=== PATIENT | female | born 1925 | race Asian ===

== ENCOUNTER 2016-07-23 11:13 | Inpatient (IN) ==
--- NOTE | 2016-07-23 11:26 | Emergency Department Note ---
Disposition Clinical Impression: Sepsis, Pneumonia, Hyperglycemia, Dementia Disposition: Admitted As Inpatient Referrals: NO,PCP [Non-Partnered Physician] - Forms: ED Satisfaction Letter General Adult HPI - General Chief complaint: ED Weakness Stated complaint: lethargic, general illness Time Seen by Provider: 07/23/16 11:14 - History of Present Illness HPI Narrative: 89-year-old female brought in by her nephew, she is a former [facility], she lives at home. The patient is essentially bedbound and has decreased responsive at baseline. She is usually answers yes or no to questions. Per the patient's nephew, she has had increasing weakness and is not as responsive as usual. There is no history of acute trauma. The patient has not indicated chest pain or shortness of breath. There has been a cough and some coarse breath sounds. She was exposed to someone else with an upper respiratory illness. There is no history of vomiting or diarrhea. No history of abdominal pain. The patient is usually in general flexion contracture position with the arms and legs. The patient has had some sacral decubitus in the past but the F he reports she has been treated by the wound center and Dr. Hamilton and this has resolved. She had a fractured shoulder earlier in the year which was not surgically repaired. The patient is diabetic, he checked her sugar to be 127. - Related Data Home Medications Medication Instructions Recorded Confirmed Aspirin Enteric Coated [Aspirin EC] 81 mg PO DAILY 01/22/16 07/23/16 Levothyroxine [Synthroid] 50 mcg PO QAM 04/13/16 07/23/16 Ipratropium/Albuterol Neb [Duoneb] 3 ml IH Q6HR PRN 04/14/16 07/23/16 Albuterol Sulfate [Albuterol 1 puff IH Q4H PRN 07/23/16 07/23/16 Inhaler] Cephalexin [Cephalexin] 125 mg PO DAILY 07/23/16 07/23/16 Docusate Sodium [Dok] 100 mg PO DAILY PRN 07/23/16 07/23/16 Donepezil [Aricept] 5 mg PO DAILY 07/23/16 07/23/16 Potassium Chloride [Potassium 20 mcg PO DAILY 07/23/16 07/23/16 Chloride] Turmeric Root Extract [Turmeric] 500 mg PO DAILY 07/23/16 07/23/16 Allergies Allergy/AdvReac Type Severity Reaction Status Date / Time No Known Allergies Allergy Verified 04/14/16 10:00 All systems ED: reviewed and negative except as stated. Past Medical History - Past Medical History Medical history: Reports: arthritis, cancer, coronary artery disease, DVT, dementia, diabetes, glaucoma, hypertension, myocardial infarction, osteoporosis , renal disease, thyroid disease, other Surgical history: Reports: cholecystectomy, knee replacement, other Psychiatric history: Reports: no psych history - Social History Smoking Status: Never smoker Smokeless Tobacco Status: No Alcohol use: Reports: none Drug use: Reports: none Physical Exam - General Limitations: altered mental status, age General appearance: alert - Head Head exam: atraumatic, normocephalic, normal inspection - Eye Eye exam: Present: normal appearance, PERRL, EOMI - ENT ENT exam: normal exam, mucous membranes moist, TM's normal bilaterally, normal external ear exam - Neck Neck exam: Present: trachea midline - Chest Chest inspection: Present: symmetric chest wall rise. Absent: tenderness - Respiratory Respiratory exam: Present: prolonged expiratory phase. Absent: respiratory distress - Cardiovascular Cardiovascular exam: Present: regular rate, normal rhythm, normal heart sounds - Abdominal Exam Abdominal exam: Present: soft, Non-Tender. Absent: tenderness, distention, guarding, rebound, rigidity, trauma, pulsatile mass - Extremities Exam Extremities exam: Present: normal capillary refill, other (The patient's upper extremities and lower extremities are warm and perfused without acute trauma. She is emaciated, chronic left shoulder deformity noted, scabbed lesions on the left shoulder and left ankle area. The patient is in flexion contracture which is chronic per the nephew.). Absent: tenderness, pedal edema - Expanded Lower Extremity Exam Neurovascular/Tendon exam: Present: normal capillary refill - Back Exam Back exam: Present: normal inspection, full ROM. Absent: tenderness - Neurological Exam Neurological exam: Present: alert, CN II-XII intact, other (Good tone in all 4 extremities, flexion contracture noted however chronic in nature, no samson cranial nerve defects are appreciated.). Absent: oriented X3 - Psychiatric Psychiatric exam: Present: normal affect, normal mood - Skin Skin exam: Present: warm, dry, intact, normal color. Absent: rash, cyanosis, diaphoresis, erythema, pallor, mottled Course Vital Signs Temperature 102.3 F H 07/23/16 11:16 Pulse Rate 86 07/23/16 11:16 Respiratory Rate 22 07/23/16 11:16 Blood Pressure 109/59 07/23/16 11:16 O2 Sat by Pulse Oximetry 99 07/23/16 11:16 Temperature 102.3 F H 07/23/16 11:16 Pulse Rate 74 07/23/16 13:34 Respiratory Rate 22 07/23/16 13:34 Blood Pressure 98/63 07/23/16 13:34 O2 Sat by Pulse Oximetry 95 07/23/16 13:34 Oxygen Delivery Oxygen Delivery Room Air Medical Decision Making - MDM Narrative Medical decision making narrative: The patient meets SIRS/sepsis criteria. She appears to have a UTI and pneumonia. Levaquin was given. He was somewhat hypotensive, 2 L of IV fluid initiated. Initial lactic acid negative. The patient is currently stable. I have consulted the hospitalist for admission. - Lab Data Lab results reviewed: Yes I reviewed the patient's lab results. Result diagrams: 07/23/16 12:30 07/23/16 12:30 Lab Results 07/23/16 07/23/16 07/23/16 Range/Units 12:28 12:30 12:30 WBC 7.8 (4.3-11.1) K/mcL RBC 3.06 L (3.82-4.97) M/mcL Hgb 8.4 L (11.5-15.4) g/dL Hct 26.8 L (35.3-44.9) % MCV 87.6 (83.0-100.0) fL MCH 27.5 L (28.0-33.3) pg MCHC 31.3 L (31.6-35.5) g/dL RDW 17.0 H (11.5-14.5) % Plt Count 233 (140-400) K/mcL MPV 9.0 L (9.4-12.4) fL Immature Gran % 0.4 (0-4) % Seg Neutrophils % 70.7 % Lymphocytes % 18.5 % Monocytes % 6.3 % Eosinophils % 3.7 % Basophils % 0.4 % Neutrophils # 5.5 (1.6-8.9) K/mcL Lymphocytes # 1.4 (0.6-4.6) K/mcL Monocytes # 0.5 (0.0-1.3) K/mcL Eosinophils # 0.3 (0.0-0.6) K/mcL Basophils # 0.0 (0.0-0.2) K/mcL PT 10.8 (9.4-12.1) Seconds INR 1.0 APTT 30.1 (26.0-36.0) Seconds Sodium (136-145) mEq/L Potassium (3.5-4.5) mEq/L Chloride (98-109) mEq/L Carbon Dioxide (19-29) mEq/L BUN (7-20) mg/dL Creatinine (0.57-1.11) mg/dL Est GFR ( Amer) (> 60) Est GFR (Non-Af Amer) (> 60) BUN/Creatinine Ratio (6-26) Glucose (70-99) mg/dL Calculated Osmolality (280-300) Lactic Acid (0.5-2.2) mmol/L Calcium (8.6-10.8) mg/dL Phosphorus (2.3-4.7) mg/dL Magnesium (1.6-2.6) mg/dL Total Bilirubin (0.2-1.2) mg/dL Direct Bilirubin (0.0-0.5) mg/dL Indirect Bilirubin (0.0-1.2) mg/dL AST (5-34) Units/L ALT (0-55) Units/L Alkaline Phosphatase (38-126) Units/L Troponin I (0-0.03) ng/mL Serum Total Protein (6.0-8.3) g/dL Albumin (3.5-5.0) g/dL Globulin (2.4-3.5) g/dL Albumin/Globulin Ratio (1.1-2.2) Urine Color Yellow (Yellow) Urine Clarity Turbid A (Clear) Urine pH 8.5 H (5.0-8.0) pH Units Ur Specific [place] 1.022 (1.010-1.025) Urine Protein 100 H (Neg-Trace) mg/dL Urine Glucose (UA) Normal (Normal) mg/dL Urine Ketones Negative (Negative) mg/dL Urine Blood Negative (Negative) Urine Nitrite Positive A (Negative) Urine Bilirubin Small H (Negative) Urine Urobilinogen Normal (Normal) mg/dL Ur Leukocyte Esterase Large H (Negative) Urine Microscopic RBC 0-3 (0-3) per hpf Urine Microscopic WBC TNTC H (0-3) per hpf Ur Squamous Epith Cells Many H (None-Few) per lpf Calcium Oxalate Crystal Present Triple Phos Crystals Present Urine Bacteria Many H (None-Few) per hpf Hyaline Casts Test Not Performed Urine Mucus Moderate H (Few) Urine Yeast Test Not Performed Ur Culture Indicated? YES A (NO) 07/23/16 07/23/16 07/23/16 Range/Units 12:30 12:30 12:30 WBC (4.3-11.1) K/mcL RBC (3.82-4.97) M/mcL Hgb (11.5-15.4) g/dL Hct (35.3-44.9) % MCV (83.0-100.0) fL MCH (28.0-33.3) pg MCHC (31.6-35.5) g/dL RDW (11.5-14.5) % Plt Count (140-400) K/mcL MPV (9.4-12.4) fL Immature Gran % (0-4) % Seg Neutrophils % % Lymphocytes % % Monocytes % % Eosinophils % % Basophils % % Neutrophils # (1.6-8.9) K/mcL Lymphocytes # (0.6-4.6) K/mcL Monocytes # (0.0-1.3) K/mcL Eosinophils # (0.0-0.6) K/mcL Basophils # (0.0-0.2) K/mcL PT (9.4-12.1) Seconds INR APTT (26.0-36.0) Seconds Sodium 132 L (136-145) mEq/L Potassium 4.3 (3.5-4.5) mEq/L Chloride 105 (98-109) mEq/L Carbon Dioxide 22 (19-29) mEq/L BUN 24 H (7-20) mg/dL Creatinine 0.57 (0.57-1.11) mg/dL Est GFR ( Amer) > 60 (> 60) Est GFR (Non-Af Amer) > 60 (> 60) BUN/Creatinine Ratio 42 H (6-26) Glucose 129 H (70-99) mg/dL Calculated Osmolality 280 (280-300) Lactic Acid 1.2 (0.5-2.2) mmol/L Calcium 7.9 L (8.6-10.8) mg/dL Phosphorus 1.8 L (2.3-4.7) mg/dL Magnesium 1.8 (1.6-2.6) mg/dL Total Bilirubin 0.3 (0.2-1.2) mg/dL Direct Bilirubin 0.2 (0.0-0.5) mg/dL Indirect Bilirubin 0.1 (0.0-1.2) mg/dL AST 11 (5-34) Units/L ALT 6 (0-55) Units/L Alkaline Phosphatase 69 (38-126) Units/L Troponin I 0.02 (0-0.03) ng/mL Serum Total Protein 5.5 L (6.0-8.3) g/dL Albumin 1.8 L (3.5-5.0) g/dL Globulin 3.7 H (2.4-3.5) g/dL Albumin/Globulin Ratio 0.5 L (1.1-2.2) Urine Color (Yellow) Urine Clarity (Clear) Urine pH (5.0-8.0) pH Units Ur Specific [place] (1.010-1.025) Urine Protein (Neg-Trace) mg/dL Urine Glucose (UA) (Normal) mg/dL Urine Ketones (Negative) mg/dL Urine Blood (Negative) Urine Nitrite (Negative) Urine Bilirubin (Negative) Urine Urobilinogen (Normal) mg/dL Ur Leukocyte Esterase (Negative) Urine Microscopic RBC (0-3) per hpf Urine Microscopic WBC (0-3) per hpf Ur Squamous Epith Cells (None-Few) per lpf Calcium Oxalate Crystal Triple Phos Crystals Urine Bacteria (None-Few) per hpf Hyaline Casts Urine Mucus (Few) Urine Yeast Ur Culture Indicated? (NO) - Radiology Data Radiology results reviewed: Yes I reviewed the patient's radiology results.
[2016-07-23] MEDS: 0.9 % Sodium Chloride 1,000 ML IVC SCH ×3 (11:50→17:19)
[2016-07-23 12:44] LABS: Basophils % 0.4 %; Eosinophils # 0.3 K/mcL (0.0-0.6); Eosinophils % 3.7 %; Hematocrit 26.8 % (35.3-44.9); Hemoglobin 8.4 g/dL (11.5-15.4); Immature Granulocytes % 0.4 % (0-4); Lymphocytes # 1.4 K/mcL (0.6-4.6); Lymphocytes % 18.5 %; Mean Corpuscular HGB Conc 31.3 g/dL (31.6-35.5); Mean Corpuscular Hemoglobin 27.5 pg (28.0-33.3); Mean Corpuscular Volume 87.6 fL (83.0-100.0); Monocytes # 0.5 K/mcL (0.0-1.3); Monocytes % 6.3 %; Neutrophils # 5.5 K/mcL (1.6-8.9); Platelet Count 233 K/mcL (140-400); Red Blood Count 3.06 M/mcL (3.82-4.97); Segmented Neutrophils % 70.7 %
[2016-07-23 12:49] LABS: Bilirubin,Urine Small (Negative); Blood,Urine Negative (Negative); Clarity,Urine Turbid (Clear); Color,Urine Yellow (Yellow); Glucose,Urine (UA) Normal (Normal); Ketones,Urine Negative (Negative); Leukocyte Esterase,Urine Large (Negative); Nitrite,Urine Positive (Negative); PH,Urine 8.5 pH Units (5.0-8.0); Protein,Urine 100 mg/dL (Neg-Trace); Specific Gravity,Urine 1.022 (1.010-1.025); Urobilinogen,Urine Normal (Normal)
[2016-07-23 12:52] LABS: Bacteria,Urine Many per hpf (None-Few); Squamous Epithelial Cell,Urine Many per lpf (None-Few); WBC,Urine TNTC per hpf (0-3)
[2016-07-23 12:57] LABS: Alanine Aminotransferase 6 Units/L (0-55); Albumin/Globulin Ratio 0.5 (1.1-2.2); Alkaline Phosphatase 69 Units/L (38-126); Aspartate Amino Transferase 11 Units/L (5-34); BUN/Creatinine Ratio 42 (6-26); Bilirubin,Direct 0.2 mg/dL (0.0-0.5); Bilirubin,Indirect 0.1 mg/dL (0.0-1.2); Bilirubin,Total 0.3 mg/dL (0.2-1.2); Blood Urea Nitrogen 24 mg/dL (7-20); Calcium 7.9 mg/dL (8.6-10.8); Carbon Dioxide 22 mEq/L (19-29); Chloride 105 mEq/L (98-109); Globulin 3.7 g/dL (2.4-3.5); Glucose 129 mg/dL (70-99); Magnesium 1.8 mg/dL (1.6-2.6); Osmolality,Calculated 280 (280-300); Phosphorous 1.8 mg/dL (2.3-4.7); Potassium 4.3 mEq/L (3.5-4.5); Sodium 132 mEq/L (136-145); Total Protein 5.5 g/dL (6.0-8.3); eGFR For African Americans > 60 (> 60); eGFR For Non-African Americans > 60 (> 60)
[2016-07-23 12:59] LABS: Albumin 1.8 g/dL (3.5-5.0); Prothrombin Time 10.8 Seconds (9.4-12.1)
[2016-07-23 13:02] LABS: Activated Partial Thrombo Time 30.1 Seconds (26.0-36.0)
[2016-07-23 13:02] LABS: Triple Phosphate Crystal,Urine Present
[2016-07-23 13:03] LABS: Calcium Oxalate Crystals,Urine Present
[2016-07-23 13:04] LABS: Mucus,Urine Moderate (Few); RBC,Urine 0-3 per hpf (0-3)
[2016-07-23] MEDS ORDERED: Levofloxacin 750 MG/150 ML 750 MG/150 ML BAG IVPB ONE (13:10)
[2016-07-23] MEDS ORDERED: 0.9 % Sodium Chloride 500 ML IVC ONE (15:39)
[2016-07-23] MEDS ORDERED: 0.9 % Sodium Chloride 500 ML ONE (15:43)
[2016-07-23] MEDS ORDERED: Vancomycin 750 MG in D5% in Water 250 ML IVPB ONE (16:48)
[2016-07-23] MEDS ORDERED: Acetaminophen 325 MG TABLET PO PRN (16:57)
[2016-07-23] MEDS ORDERED: Naloxone 0.4 MG/ML INJ IVP PRN (16:57)
[2016-07-23] MEDS ORDERED: Ondansetron 4 MG/2 ML VIAL IVP PRN (16:57)
[2016-07-23] MEDS ORDERED: 0.9 % Sodium Chloride 1,000 ML IVC SCH (17:00)
[2016-07-23] MEDS ORDERED: Ipratropium/Albuterol Neb 3 ML IH PRN (17:00)
--- NOTE | 2016-07-23 17:10 | Internal Med History&Physical ---
Date of Encounter: 07/23/16 Time of Encounter: 16:40 Assessment and Plan (1) HCAP (healthcare-associated pneumonia) Current visit: Yes Status: Acute CXR consistent with LLL PNA continue IV abx at this time follow up blood cultures IV fluids (2) UTI (urinary tract infection) Current visit: Yes Status: Acute -History of recurrent UTI -Will change deal catheter -follow up repeat urine cultures -History of ESBL proteus mirablis UTI in March 2016 sensitivity to Zosyn and resistant to Levaquin -Will start Zosyn at this time Qualifiers: Urinary tract infection type: catheter-associated UTI Indwelling urinary catheter type: indwelling urethral catheter Encounter type: initial encounter Qualified Code(s): T83.511A - Infection and inflammatory reaction due to indwelling urethral catheter, initial encounter; N39.0 - Urinary tract infection , site not specified (3) Diabetes mellitus Current visit: Yes Status: Acute -Family reports history of DM but last hbA1C in 02/27 was 5.7 -f/u repeat HbA1C -started on low dose insulin algorithm as needed -monitor fingerstick and blood glucose Qualifiers: Diabetes mellitus type: type 2 Chronic kidney disease stage: unspecified stage Qualified Code(s): E11.22 - Type 2 diabetes mellitus with diabetic chronic kidney disease (4) Anemia Current visit: Yes Status: Acute likely secondary to chronic disease no active bleeding noted at this time H&H low but acceptable continue to monitor Qualifiers: Anemia type: unspecified type Qualified Code(s): D64.9 - Anemia, unspecified (5) Electrolyte abnormality Current visit: Yes Status: Acute -Hypophosphatemia noted -Phos supplemented -will continue to monitor electrolytes and replace as needed (6) DVT prophylaxis Current visit: Yes Status: Acute heparin sq (7) Dementia Current visit: Yes Status: Chronic continue home medications Qualifiers: Dementia type: unspecified type Dementia behavioral disturbance: without behavioral disturbance Qualified Code(s): F03.90 - Unspecified dementia without behavioral disturbance (8) Dysphagia Current visit: No Status: Acute follow up speech therapy eval Qualifiers: Dysphagia type: unspecified Qualified Code(s): R13.10 - Dysphagia, unspecified Internal Medicine - H&P: HPI Chief complaint: change in mental status Admitted From: Home Plans for Post Hospital Care: [facility] History of present illness: Ms. Bueno is a 89 year old female with a history of traumatic brain injury who is bedbound with indwelling Deal catheter, dementia, diabetes, hypertension, renal disease, CML in remission who was brought to the hospital by base wad operator adjuster/ POA for acute change in mental status. Patient is nonverbal at this time due to which medical history and preceding events of the ER were provided by the nephew/POA present at bedside. As per nephew, patient was in her usual state of health until this morning when she became extremely lethargic, was non- arousable. He states she was noted to have worsening cough and she was recently exposed to family with a URI. At baseline patient is bedbound and has 04/02 home health. Patient was previously on hospice care but preferred home health over hospice. In the ER patient was found to have a UTI and chest x-ray consistent with pneumonia. Patient was treated for ESBL UTI in March 2016. As per POA and patient's wishes, patient is DNR/DNI. patient is on a pureed/nectar thickened liquid diet at home and her diet was normal until this morning. Past Med Surg Social Fam HX - Past Medical History Medical history: arthritis, cancer (CML in remission), coronary artery disease, dementia, diabetes, glaucoma, hypertension, myocardial infarction, osteoporosis , renal disease, thyroid disease, other Psychiatric history: no psych history - Past Surgical History Surgical History: cholecystectomy, knee replacement, other - Social History Smoking Status: Never smoker Smokeless Tobacco Status: No Alcohol use: none Drug use: none - Family History Father Hx Family Endocrine Disorder: Yes Hx Family Neurologic Disorders: Yes (CVA) Mother Living Status: Unknown Internal Medicine - H&P: Meds Aspirin Enteric Coated [Aspirin EC] 81 mg PO DAILY 01/22/16 [History] Levothyroxine [Synthroid] 50 mcg PO QAM 04/13/16 [History] Ipratropium/Albuterol Neb [Duoneb] 3 ml IH Q6HR PRN 04/14/16 [History] Albuterol Sulfate [Albuterol Inhaler] 1 puff IH Q4H PRN 07/23/16 [History] Cephalexin [Cephalexin] 125 mg PO DAILY 07/23/16 [History] Docusate Sodium [Dok] 100 mg PO DAILY PRN 07/23/16 [History] Donepezil [Aricept] 5 mg PO DAILY 07/23/16 [History] Potassium Chloride [Potassium Chloride] 20 mcg PO DAILY 07/23/16 [History] Turmeric Root Extract [Turmeric] 500 mg PO DAILY 07/23/16 [History] Allergies No Known Allergies Allergy (Verified 04/14/16 10:00) ROS unobtainable: due to mental status (frail/lethargic) All Systems PM: A 10-system review of systems was performed and is negative for pertinent findings except as documented above in the HPI. - Constitutional Vitals: Temp Pulse Resp BP Pulse Ox 102.3 F H 84 18 99/33 100 07/23/16 11:16 07/23/16 16:03 07/23/16 16:03 07/23/16 16:03 07/23/16 16:27 General appearance: Present: A&O X 0 (frail appearing elderly, contracted lower extremities), no acute distress - Head Head exam: Present: atraumatic, normocephalic - Eye Eye exam: Present: conjuntiva pink, sclera anicteric - Respiratory Respiratory exam: Absent: wheezes (diffuse coarse breath sounds ) - Cardiovascular Cardiovascular exam: Present: RRR, +S1, +S2 - GI/Abdominal GI/Abdominal exam: Present: normal bowel sounds, soft. Absent: tenderness - Extremities Exam Extremities exam: Present: pedal edema (bilateral lower extremity pedal edema; bilateral Heel ulcers-chronic, left shoulder ulcer, ), warm, radial pulses palpable and symetrical. Absent: calf tenderness - Back Exam Back exam: Absent: tenderness (kyphosis ) - Neurological Exam Neurological exam: Present: alert (drowsy but arousable ) Internal Med - H&P Results - Labs CBC & Chem 7: 07/23/16 12:30 07/23/16 12:30
[2016-07-23] MEDS ORDERED: Sodium Phosphate 30 MMOL in D5% in Water 100 ML IVPB ONE (17:20)
[2016-07-23] MEDS: Piperacillin/Tazobactam 3.375 GM in D5% in Water (Mini-Bag+) 100 ML IVPB SCH (17:20)
[2016-07-23] MEDS ORDERED: Dextrose Gel 15 GM PO PRN ×2 (17:25)
[2016-07-23] MEDS ORDERED: D5% in Water 1,000 ML IV PRN (17:25)
[2016-07-23] MEDS ORDERED: *HR* Dextrose 50 % in Water (Syg) 50 ML SYRINGE IVP PRN (17:25)
[2016-07-23] MEDS: *HR* Heparin 5,000 UNIT/ML VIAL SQ SCH (18:22)
[2016-07-23] MEDS: Insulin LISPRO 300 UNITS/3 ML VIAL SQ SCH (19:03)
[2016-07-24 00:35] LABS: C-Reactive Protein 38 mg/L (Less than 5)
[2016-07-24] MEDS: Insulin LISPRO 300 UNITS/3 ML VIAL SQ SCH ×4 (00:42→18:04)
[2016-07-24] MEDS: Piperacillin/Tazobactam 3.375 GM in D5% in Water (Mini-Bag+) 100 ML IVPB SCH ×3 (00:44→18:05)
[2016-07-24] MEDS: 0.9 % Sodium Chloride 1,000 ML IVC SCH ×2 (02:43→12:29)
[2016-07-24] MEDS: *HR* Heparin 5,000 UNIT/ML VIAL SQ SCH ×2 (06:15→16:22)
[2016-07-24 07:12] LABS: Basophils % 0.6 %; Eosinophils # 0.4 K/mcL (0.0-0.6); Eosinophils % 7.2 %; Hematocrit 24.7 % (35.3-44.9); Hemoglobin 7.9 g/dL (11.5-15.4); Immature Granulocytes % 0.4 % (0-4); Lymphocytes # 1.4 K/mcL (0.6-4.6); Lymphocytes % 24.9 %; Mean Corpuscular Hemoglobin 27.4 pg (28.0-33.3); Mean Corpuscular Volume 85.8 fL (83.0-100.0); Mean Platelet Volume 9.6 fL (9.4-12.4); Monocytes # 0.3 K/mcL (0.0-1.3); Monocytes % 5.9 %; Neutrophils # 3.3 K/mcL (1.6-8.9); Platelet Count 239 K/mcL (140-400); Red Blood Count 2.88 M/mcL (3.82-4.97); Red Cell Distribution Width 17.2 % (11.5-14.5)
[2016-07-24 07:33] LABS: BUN/Creatinine Ratio 29 (6-26); Blood Urea Nitrogen 16 mg/dL (7-20); Calcium 7.6 mg/dL (8.6-10.8); Carbon Dioxide 21 mEq/L (19-29); Chloride 113 mEq/L (98-109); Glucose 108 mg/dL (70-99); Magnesium 1.6 mg/dL (1.6-2.6); Osmolality,Calculated 292 (280-300); Potassium 3.5 mEq/L (3.5-4.5); eGFR For African Americans > 60 (> 60); eGFR For Non-African Americans > 60 (> 60)
[2016-07-24 07:42] LABS: Phosphorous 3.7 mg/dL (2.3-4.7); Sodium 140 mEq/L (136-145)
[2016-07-24 08:25] LABS: Hemoglobin A1C 5.6 %
[2016-07-24] MEDS ORDERED: (Turmeric Root Extract [Turmeric] 500 MG) PO SCH (09:00)
--- NOTE | 2016-07-24 09:47 | Internal Med Progress Note ---
<Flo Foreman - Last Filed: 07/24/16 16:46> Date of Encounter: 07/24/16 Time of Encounter: 09:20 - Assessment and plan (1) HCAP (healthcare-associated pneumonia) Current Visit: Yes Status: Acute Assessment and plan: CXR with LLL infiltrate, previous hospice resident. Cont Vanc/Zosyn BC x 2 pending, sputum if able, to guide deescalation. (2) UTI (urinary tract infection) due to urinary indwelling Deal catheter Current Visit: Yes Status: Acute Assessment and plan: Bedbound, indwelling deal catheter for 6 months per nephew at bedside. Ucx sent, pending. Cont broad spectrum abx. Patient unable to affirm any urinary sx. Qualifiers: Indwelling urinary catheter type: indwelling urethral catheter Qualified Code(s): T83.511A - Infection and inflammatory reaction due to indwelling urethral catheter, initial encounter; N39.0 - Urinary tract infection, site not specified (3) Anemia Current Visit: Yes Status: Acute Assessment and plan: Normocytic anemia, no signs of active bleed. Prior iron profile would suggest BARRON, Transfuse for Hgb<7 Qualifiers: Anemia type: iron deficiency Qualified Code(s): D50.9 - Iron deficiency anemia, unspecified (4) Dementia Current Visit: Yes Status: Chronic Assessment and plan: Dementia, baseline per nephew she speaks in 1-2 word phrases and recognizes family members only. Cont aricept Qualifiers: Dementia type: Alzheimer's disease Dementia behavioral disturbance: without behavioral disturbance Qualified Code(s): G30.9 - Alzheimer's disease , unspecified; F02.80 - Dementia in other diseases classified elsewhere without behavioral disturbance (5) DVT prophylaxis Current Visit: No Status: Acute Assessment and plan: EPCDs - Subjective Interval history: Patient seen/eval, first encounter. Nephew at bedside, who states he is her primary sandblaster glass. She was previously in hospice, but he changed her to living at home with him + Reports he is Mauricio ROYAL [phone] States her baseline is verbal 1-2 words, but has been less verbal. To his knowledge, she has no bloody sputum, urine, stool. No diarrhea or vomiting. 89 yoF hx TBI in 2013, bedbound with indwelling deal for past 6 months, presents AMS, setting of worsening cough and sick contacts. Poor appetite and lower energy. PMH Dementia, HTN, CML in remission. Previously in hospice care but transitioned to . DNR-DNI. On Vanc/Zosyn, UA Hgb 8.4, 7.9 from 11. - Constitutional Vitals: Temp Pulse Resp BP Pulse Ox 97.8 F 78 16 112/68 99 07/24/16 06:53 07/24/16 06:53 07/24/16 06:53 07/24/16 06:53 07/24/16 06:53 General appearance: Present: A&O X 0 (frail appearing elderly, contracted lower extremities), no acute distress - Head Head exam: Present: atraumatic Additional comments: bitemporal wasting - Eye Eye exam: Present: EOMI - Neck Neck exam general surgery: Present: trachea midline - Respiratory Respiratory exam: Present: rhonchi (scant all wilkins). Absent: accessory muscle use, chest wall tenderness, wheezes - Cardiovascular Cardiovascular exam: Present: +S1, +S2. Absent: JVD - GI/Abdominal GI/Abdominal exam: Present: soft, no peritoneal signs. Absent: tenderness - Extremities Exam Extremities exam: Present: warm, radial pulses palpable and symetrical. Absent : pedal edema Internal Medicine: Result - Labs CBC & Chem 7: 07/24/16 06:12 07/24/16 06:12 Labs: Short CBC 07/24/16 Range/Units 06:12 WBC 5.4 (4.3-11.1) K/mcL Hgb 7.9 L (11.5-15.4) g/dL Hct 24.7 L (35.3-44.9) % Plt Count 239 (140-400) K/mcL Neutrophils # 3.3 (1.6-8.9) K/mcL BMP 07/24/16 06:12 Sodium 140 D Potassium 3.5 Chloride 113 H Carbon Dioxide 21 BUN 16 Creatinine 0.56 L Glucose 108 H Calcium 7.6 L - ABG Interpretation ABG results: PT/INR, D-dimer PT 10.8 Seconds (9.4-12.1) 07/23/16 12:30 Consult Discharge Plan - Plan Referrals: Ratna Nazario, ACTIVITY MANAGER [Primary Care Provider] - <Curtis Garcia - Last Filed: 07/24/16 19:02> Date of Encounter: 07/24/16 - Constitutional Vitals: Temp Pulse Resp BP Pulse Ox 97.8 F 78 16 112/68 99 07/24/16 06:53 07/24/16 06:53 07/24/16 06:53 07/24/16 06:53 07/24/16 06:53 Internal Medicine: Result - Labs CBC & Chem 7: 07/24/16 06:12 07/24/16 06:12 Labs: Short CBC 07/24/16 Range/Units 06:12 WBC 5.4 (4.3-11.1) K/mcL Hgb 7.9 L (11.5-15.4) g/dL Hct 24.7 L (35.3-44.9) % Plt Count 239 (140-400) K/mcL Neutrophils # 3.3 (1.6-8.9) K/mcL BMP 07/24/16 06:12 Sodium 140 D Potassium 3.5 Chloride 113 H Carbon Dioxide 21 BUN 16 Creatinine 0.56 L Glucose 108 H Calcium 7.6 L - ABG Interpretation ABG results: PT/INR, D-dimer PT 10.8 Seconds (9.4-12.1) 07/23/16 12:30 - Attending Attestation I examined this patient and my medical decision-making was reviewed with the Resident Physician Dr Foreman. I agree with the documented findings, disposition and treatment plan as described except to the extent set forth below. his first time I am meeting the patient. All problems new to me. Patient did not provide history due to advanced dementia. History is obtain at the bedside from the POA. On exam she is in no acute distress, nonverbal, heart regular rhythm, S1-S2. skin exam reveals a stage II sacral decubitus ulcer. per chart review she has had recurrent UTIs urine culture and Eda grew Proteus mirabilis ESBL, sensitive to Zosyn and meropenem. plan: Continue antibiotics. follow-up cultures and urine culture and sensities. she is at high risk due to treatment with IV vancocin which requires close blood level monitoring for toxicity.
[2016-07-24] MEDS: Aspirin Enteric Coated 81 MG Tablet PO SCH (12:28)
--- NOTE | 2016-07-24 14:32 | Electrocardiograph Report ---
[facility] Test Date: 2016-07-23 Pat Name: TAURUS NORIEGA Department: 105 Room: 2A22 Gender: F Transit Mechanic: [facility] : 1925 Requested By: Emory Spears Order Number: [id number] Reading MD: Anna Woodward Measurements Intervals [place] Rate: 88 P: 24 UT: 159 QRS: 20 QRSD: 90 T: 30 QT: 358 QTc: 403 Interpretive Statements Significant baseline artifact Multiple leads unsuitable for interpretation Suggest repeat tracing Electronically Signed On 07-24-16 14:23:00 EST by Anna Woodward
[2016-07-24] MEDS ORDERED: Vancomycin 750 MG in D5% in Water 250 ML IVPB SCH (17:00)
[2016-07-24] MEDS ORDERED: Vancomycin 1,000 MG in D5% in Water 250 ML IVPB SCH (17:00)
[2016-07-25] MEDS: Piperacillin/Tazobactam 3.375 GM in D5% in Water (Mini-Bag+) 100 ML IVPB SCH ×3 (01:12→15:14)
[2016-07-25] MEDS: Insulin LISPRO 300 UNITS/3 ML VIAL SQ SCH ×4 (01:14→17:55)
[2016-07-25] MEDS: *HR* Heparin 5,000 UNIT/ML VIAL SQ SCH ×2 (06:15→17:55)
[2016-07-25] MEDS: 0.9 % Sodium Chloride 1,000 ML IVC SCH ×2 (06:15→15:16)
[2016-07-25 06:44] LABS: Basophils % 0.6 %; Eosinophils # 0.8 K/mcL (0.0-0.6); Eosinophils % 16.1 %; Hematocrit 23.1 % (35.3-44.9); Hemoglobin 7.3 g/dL (11.5-15.4); Immature Granulocytes % 0.4 % (0-4); Lymphocytes % 21.5 %; Mean Corpuscular HGB Conc 31.6 g/dL (31.6-35.5); Mean Corpuscular Hemoglobin 27.1 pg (28.0-33.3); Mean Corpuscular Volume 85.9 fL (83.0-100.0); Mean Platelet Volume 9.4 fL (9.4-12.4); Monocytes # 0.3 K/mcL (0.0-1.3); Monocytes % 6.6 %; Neutrophils # 2.6 K/mcL (1.6-8.9); Platelet Count 233 K/mcL (140-400); Red Blood Count 2.69 M/mcL (3.82-4.97); Red Cell Distribution Width 17.6 % (11.5-14.5); Segmented Neutrophils % 54.8 %
[2016-07-25 06:59] LABS: % Iron Saturation 11 % (15-50); BUN/Creatinine Ratio 24 (6-26); Blood Urea Nitrogen 13 mg/dL (7-20); Calcium 7.8 mg/dL (8.6-10.8); Carbon Dioxide 19 mEq/L (19-29); Chloride 118 mEq/L (98-109); Glucose 112 mg/dL (70-99); Iron 15 mcg/dL (50-170); Magnesium 1.6 mg/dL (1.6-2.6); Osmolality,Calculated 295 (280-300); Potassium 3.5 mEq/L (3.5-4.5); Sodium 142 mEq/L (136-145); Transferrin 95 mg/dL (180-382); eGFR For African Americans > 60 (> 60); eGFR For Non-African Americans > 60 (> 60)
[2016-07-25 07:19] LABS: Ferritin 253 ng/ml (5-204)
[2016-07-25] MEDS: Aspirin Enteric Coated 81 MG Tablet PO SCH (09:27)
[2016-07-25] MEDS ORDERED: Potassium Chloride Elixir 20 MEQ/15 ML UDC PO ONE (09:28)
[2016-07-25] MEDS ORDERED: Sodium Chloride for inhalation 15 ML INHSOL IH ONE (10:04)
--- NOTE | 2016-07-25 10:28 | Internal Med Progress Note ---
<Flo Foreman - Last Filed: 07/25/16 13:50> Date of Encounter: 07/25/16 Time of Encounter: 10:15 - Assessment and plan (1) HCAP (healthcare-associated pneumonia) Current Visit: Yes Status: Acute Assessment and plan: CXR with LLL infiltrate, previous hospice resident. Cont Vanc/Zosyn BC x 2 negative Consult for RT with hypertonic saline induced sputum. (2) UTI (urinary tract infection) due to urinary indwelling Deal catheter Current Visit: Yes Status: Acute Assessment and plan: Bedbound, indwelling deal catheter for 6 months per nephew at bedside. Ucx sent, ESBL Proteus sensitive to Zosyn, Tobramycin, Gentamicin, Meropenem. Cont Zosyn, total duration 14 days. Consult PICC team - EPIV insertion in anticipation of IV abx on discharge. Qualifiers: Indwelling urinary catheter type: indwelling urethral catheter Encounter type: subsequent encounter Qualified Code(s): T83.511D - Infection and inflammatory reaction due to indwelling urethral catheter, subsequent encounter ; N39.0 - Urinary tract infection, site not specified (3) Anemia Current Visit: Yes Status: Acute Assessment and plan: Normocytic anemia, no signs of active bleed. 07/25/16 Iron profile s/o anemia of chronic disease. Ferrotom 253. Low iron/sat/ TF Transfuse for Hgb<7 Qualifiers: Anemia type: other cause Other causes of anemia: chronic disease, other Qualified Code(s): D63.8 - Anemia in other chronic diseases classified elsewhere (4) Dementia Current Visit: Yes Status: Chronic Assessment and plan: Dementia, baseline per nephew she speaks in 1-2 word phrases and recognizes family members only. 07/25 She is nonverbal, appears comfortable. Cont aricept Qualifiers: Dementia type: Alzheimer's disease Dementia behavioral disturbance: without behavioral disturbance Qualified Code(s): G30.8 - Other Alzheimer's disease; F02.80 - Dementia in other diseases classified elsewhere without behavioral disturbance (5) DVT prophylaxis Current Visit: No Status: Acute Assessment and plan: EPCDs - Subjective Interval history: Patient seen/eval, she would be tracking with eyes, but nonverbal, appears comfortable. I/O's, with + 3L last 24 hrs, +5L since admission. Unable to obtain sputum. Ordered for RT induced sputum. - Constitutional Vitals: Temp Pulse Resp BP Pulse Ox 98.0 F 69 16 115/72 100 07/25/16 07:08 07/25/16 07:08 07/25/16 07:08 07/25/16 07:08 07/25/16 07:08 General appearance: Present: A&O X 0 (frail appearing elderly, contracted lower extremities, nonverbal), no acute distress - Head Head exam: Present: atraumatic, normocephalic - Eye Eye exam: Present: EOMI, sclera anicteric - ENT ENT exam: Present: mucous membranes moist - Neck Neck exam general surgery: Present: trachea midline - Respiratory Respiratory exam: Present: decreased breath sounds (shallow inspiratory effort) . Absent: rhonchi - Cardiovascular Cardiovascular exam: Present: +S1, +S2. Absent: JVD - GI/Abdominal GI/Abdominal exam: Present: soft, no peritoneal signs. Absent: tenderness - Extremities Exam Extremities exam: Present: warm, radial pulses palpable and symetrical. Absent : pedal edema Internal Medicine: Result - Labs CBC & Chem 7: 07/25/16 05:34 07/25/16 05:34 Labs: Short CBC 07/25/16 Range/Units 05:34 WBC 4.8 (4.3-11.1) K/mcL Hgb 7.3 L (11.5-15.4) g/dL Hct 23.1 L (35.3-44.9) % Plt Count 233 (140-400) K/mcL Neutrophils # 2.6 (1.6-8.9) K/mcL BMP 07/25/16 05:34 Sodium 142 Potassium 3.5 Chloride 118 H Carbon Dioxide 19 BUN 13 Creatinine 0.54 L Glucose 112 H Calcium 7.8 L - ABG Interpretation ABG results: PT/INR, D-dimer PT 10.8 Seconds (9.4-12.1) 07/23/16 12:30 Consult Discharge Plan - Plan Referrals: Ratna Nazario PANMAN [Primary Care Provider] - <Curtis Garcia - Last Filed: 07/25/16 17:55> Date of Encounter: 07/25/16 - Constitutional Vitals: Temp Pulse Resp BP Pulse Ox 97.6 F 78 16 115/60 100 07/25/16 14:57 07/25/16 14:57 07/25/16 17:43 07/25/16 14:57 07/25/16 17:43 Internal Medicine: Result - Labs CBC & Chem 7: 07/25/16 05:34 07/25/16 05:34 Labs: Short CBC 07/25/16 Range/Units 05:34 WBC 4.8 (4.3-11.1) K/mcL Hgb 7.3 L (11.5-15.4) g/dL Hct 23.1 L (35.3-44.9) % Plt Count 233 (140-400) K/mcL Neutrophils # 2.6 (1.6-8.9) K/mcL BMP 07/25/16 05:34 Sodium 142 Potassium 3.5 Chloride 118 H Carbon Dioxide 19 BUN 13 Creatinine 0.54 L Glucose 112 H Calcium 7.8 L - ABG Interpretation ABG results: PT/INR, D-dimer PT 10.8 Seconds (9.4-12.1) 07/23/16 12:30 - Attending Attestation I examined this patient and my medical decision-making was reviewed with the Resident Physician. I agree with the documented findings, disposition and treatment plan as described except to the extent set forth below. She is continues to be nonverbal however per family member at the bedside she is more animated today. We will continue treatment with Zosyn and vancomycin, follow up cultures. Discharge planning. Social work consult.
[2016-07-25] MEDS ORDERED: traMADol 50 MG TABLET PO PRN (13:18)
[2016-07-25] MEDS ORDERED: 3% Sodium Chloride Inhalation 4 ML VIAL.NEB IH ONE (16:05)
[2016-07-25] MEDS ORDERED: Vancomycin 1,000 MG in D5% in Water 250 ML IVPB SCH (17:00)
[2016-07-25] MEDS: Vancomycin 750 MG in D5% in Water 250 ML IVPB SCH (17:54)
[2016-07-26] MEDS: Piperacillin/Tazobactam 3.375 GM in D5% in Water (Mini-Bag+) 100 ML IVPB SCH ×2 (00:03→08:25)
[2016-07-26] MEDS: Insulin LISPRO 300 UNITS/3 ML VIAL SQ SCH ×4 (00:10→18:27)
[2016-07-26] MEDS: Vancomycin 750 MG in D5% in Water 250 ML IVPB SCH ×2 (04:36→18:27)
[2016-07-26] MEDS: 0.9 % Sodium Chloride 1,000 ML IVC SCH (04:40)
[2016-07-26 06:07] LABS: Hematocrit 23.3 % (35.3-44.9); Hemoglobin 7.2 g/dL (11.5-15.4); Mean Corpuscular HGB Conc 30.9 g/dL (31.6-35.5); Mean Corpuscular Hemoglobin 27.2 pg (28.0-33.3); Mean Corpuscular Volume 87.9 fL (83.0-100.0); Mean Platelet Volume 9.1 fL (9.4-12.4); Platelet Count 217 K/mcL (140-400); Red Blood Count 2.65 M/mcL (3.82-4.97); Red Cell Distribution Width 17.8 % (11.5-14.5)
[2016-07-26 06:20] LABS: BUN/Creatinine Ratio 27 (6-26); Blood Urea Nitrogen 14 mg/dL (7-20); Calcium 7.6 mg/dL (8.6-10.8); Carbon Dioxide 16 mEq/L (19-29); Chloride 120 mEq/L (98-109); Glucose 141 mg/dL (70-99); Osmolality,Calculated 299 (280-300); Potassium 3.7 mEq/L (3.5-4.5); Sodium 143 mEq/L (136-145); eGFR For African Americans > 60 (> 60); eGFR For Non-African Americans > 60 (> 60)
[2016-07-26] MEDS: *HR* Heparin 5,000 UNIT/ML VIAL SQ SCH ×2 (06:25→18:27)
[2016-07-26] MEDS: Aspirin Enteric Coated 81 MG Tablet PO SCH (08:25)
--- NOTE | 2016-07-26 09:52 | Internal Med Progress Note ---
<Flo Foreman - Last Filed: 07/26/16 15:06> Date of Encounter: 07/26/16 Time of Encounter: 09:05 - Assessment and plan (1) HCAP (healthcare-associated pneumonia) Current Visit: Yes Status: Acute Assessment and plan: CXR with LLL infiltrate, previous hospice resident. BC x 2 negative Unable to obtain sputum. Start Ertapenem Day #1. (2) UTI (urinary tract infection) due to urinary indwelling Dael catheter Current Visit: Yes Status: Acute Assessment and plan: Bedbound, indwelling deal catheter for 6 months per nephew at bedside. Ucx sent, ESBL Proteus sensitive to Zosyn, Tobramycin, Gentamicin, Meropenem. Start Ertapenem, total duration 14 days. Consult PICC team - EPIV insertion in anticipation of IV abx on discharge. Qualifiers: Indwelling urinary catheter type: indwelling urethral catheter Encounter type: subsequent encounter Qualified Code(s): T83.511D - Infection and inflammatory reaction due to indwelling urethral catheter, subsequent encounter ; N39.0 - Urinary tract infection, site not specified (3) Anemia Current Visit: Yes Status: Acute Assessment and plan: Normocytic anemia, no signs of active bleed. 07/25/16 Iron profile s/o anemia of chronic disease. Ferrotom 253. Low iron/sat/ TF 05/26/17 Hgb 7.2 Transfuse for Hgb<7 Qualifiers: Anemia type: other cause Other causes of anemia: chronic disease, other Qualified Code(s): D63.8 - Anemia in other chronic diseases classified elsewhere (4) Dementia Current Visit: Yes Status: Chronic Assessment and plan: Dementia, baseline per nephew she speaks in 1-2 word phrases and recognizes family members only. 07/25 She is nonverbal, appears comfortable. Cont aricept Qualifiers: Dementia type: Alzheimer's disease Dementia behavioral disturbance: without behavioral disturbance Qualified Code(s): G30.8 - Other Alzheimer's disease; F02.80 - Dementia in other diseases classified elsewhere without behavioral disturbance (5) DVT prophylaxis Current Visit: No Status: Acute Assessment and plan: EPCDs - Subjective Interval history: Patient seen/eval, mild temp 100.3. She is vocalizing. Starting ertapenem today. - Constitutional Vitals: Temp Pulse Resp BP Pulse Ox 98.7 F 72 18 101/53 99 07/26/16 07:42 07/26/16 07:42 07/26/16 07:42 07/26/16 07:42 07/26/16 07:42 General appearance: Present: A&O X 0 (frail appearing elderly, contracted lower extremities, nonverbal), no acute distress - Head Head exam: Present: atraumatic, normocephalic - Eye Eye exam: Present: EOMI, sclera anicteric - ENT ENT exam: Present: mucous membranes moist - Neck Neck exam general surgery: Present: trachea midline - Respiratory Respiratory exam: Present: decreased breath sounds (poor insp effort). Absent: rhonchi, wheezes - Cardiovascular Cardiovascular exam: Present: +S1, +S2. Absent: JVD - GI/Abdominal GI/Abdominal exam: Present: soft, no peritoneal signs. Absent: tenderness - Extremities Exam Extremities exam: Present: warm, radial pulses palpable and symetrical. Absent : pedal edema Internal Medicine: Result - Labs CBC & Chem 7: 07/26/16 05:22 07/26/16 05:22 Labs: Short CBC 07/26/16 Range/Units 05:22 WBC 6.0 (4.3-11.1) K/mcL Hgb 7.2 L (11.5-15.4) g/dL Hct 23.3 L (35.3-44.9) % Plt Count 217 (140-400) K/mcL BMP 07/26/16 05:22 Sodium 143 Potassium 3.7 Chloride 120 H Carbon Dioxide 16 L BUN 14 Creatinine 0.51 L Glucose 141 H Calcium 7.6 L - ABG Interpretation ABG results: PT/INR, D-dimer PT 10.8 Seconds (9.4-12.1) 07/23/16 12:30 - VTE Documentation of Mechanical Device: Intermittent pneumatic compression device Consult Discharge Plan - Plan Referrals: Ratna Nazario CNP [Primary Care Provider] - <Curtis Garcia - Last Filed: 07/26/16 18:23> Date of Encounter: 07/26/16 - Constitutional Vitals: Temp Pulse Resp BP Pulse Ox 98.8 F 71 16 129/75 96 07/26/16 15:00 07/26/16 15:00 07/26/16 15:00 07/26/16 15:00 07/26/16 15:00 Internal Medicine: Result - Labs CBC & Chem 7: 07/26/16 05:22 07/26/16 05:22 Labs: Short CBC 07/26/16 Range/Units 05:22 WBC 6.0 (4.3-11.1) K/mcL Hgb 7.2 L (11.5-15.4) g/dL Hct 23.3 L (35.3-44.9) % Plt Count 217 (140-400) K/mcL BMP 07/26/16 05:22 Sodium 143 Potassium 3.7 Chloride 120 H Carbon Dioxide 16 L BUN 14 Creatinine 0.51 L Glucose 141 H Calcium 7.6 L - ABG Interpretation ABG results: PT/INR, D-dimer PT 10.8 Seconds (9.4-12.1) 07/23/16 12:30 - Attending Attestation I examined this patient and my medical decision-making was reviewed with the Resident Physician. I agree with the documented findings, disposition and treatment plan as described except to the extent set forth below. Patient cannot provide any history due to advanced dementia and nonverbal state. She appears in distress. Heart is regular. Lungs with poor air movement and decreased respiratory effort. Plan we will continue with IV antibiotics. Plan for shelter placement. She is at high risk due to IV vancomycin" requiring blood levels monitoring for toxicity.
[2016-07-26] MEDS ORDERED: Ertapenem 1,000 MG in 0.9 % Sodium Chloride Mini Bag 100 ML IVPB SCH (16:00)
[2016-07-27] MEDS: Insulin LISPRO 300 UNITS/3 ML VIAL SQ SCH ×3 (01:25→12:31)
[2016-07-27 04:52] LABS: BUN/Creatinine Ratio 29 (6-26); Blood Urea Nitrogen 13 mg/dL (7-20); Calcium 7.7 mg/dL (8.6-10.8); Carbon Dioxide 20 mEq/L (19-29); Chloride 117 mEq/L (98-109); Glucose 103 mg/dL (70-99); Osmolality,Calculated 292 (280-300); Potassium 3.1 mEq/L (3.5-4.5); Sodium 141 mEq/L (136-145); eGFR For African Americans > 60 (> 60); eGFR For Non-African Americans > 60 (> 60)
[2016-07-27 05:10] LABS: Hematocrit 24.9 % (35.3-44.9); Hemoglobin 7.9 g/dL (11.5-15.4)
[2016-07-27] MEDS: Vancomycin 750 MG in D5% in Water 250 ML IVPB SCH (05:38)
[2016-07-27] MEDS: *HR* Heparin 5,000 UNIT/ML VIAL SQ SCH (05:45)
[2016-07-27] MEDS ORDERED: Potassium Chloride Elixir 20 MEQ/15 ML UDC PO ONE (08:38)
[2016-07-27] MEDS: Aspirin Enteric Coated 81 MG Tablet PO SCH (09:35)
--- NOTE | 2016-07-27 09:52 | Discharge Summary ---
<Flo Foreman - Last Filed: 07/27/16 13:10> Date of Encounter: 07/27/16 Time of Encounter: 09:10 - Discharge Diagnosis (1) HCAP (healthcare-associated pneumonia) Priority: Primary Status: Resolved (2) UTI (urinary tract infection) due to urinary indwelling Deal catheter Priority: Primary Status: Acute Qualifiers: Indwelling urinary catheter type: indwelling urethral catheter Encounter type: subsequent encounter Qualified Code(s): T83.511D - Infection and inflammatory reaction due to indwelling urethral catheter, subsequent encounter ; N39.0 - Urinary tract infection, site not specified (3) Anemia Priority: Secondary Status: Chronic Qualifiers: Anemia type: other cause Other causes of anemia: chronic disease, other Qualified Code(s): D63.8 - Anemia in other chronic diseases classified elsewhere (4) Dementia Priority: Secondary Status: Chronic Qualifiers: Dementia type: Alzheimer's disease Dementia behavioral disturbance: without behavioral disturbance Qualified Code(s): G30.8 - Other Alzheimer's disease; F02.80 - Dementia in other diseases classified elsewhere without behavioral disturbance (5) DVT prophylaxis Priority: Secondary Status: Acute - Discharge Medications Prescriptions: Ertapenem [INVanz] 1,000 mg IVPB DAILY #9 vial Home Medications: Aspirin Enteric Coated [Aspirin EC] 81 mg PO DAILY 01/22/16 [History] Levothyroxine [Synthroid] 50 mcg PO QAM 04/13/16 [History] Ipratropium/Albuterol Neb [Duoneb] 3 ml IH Q6HR PRN 04/14/16 [History] Albuterol Sulfate [Albuterol Inhaler] 1 puff IH Q4H PRN 07/23/16 [History] Docusate Sodium [Dok] 100 mg PO DAILY PRN 07/23/16 [History] Donepezil [Aricept] 5 mg PO DAILY 07/23/16 [History] Potassium Chloride 20 mcg PO DAILY 07/23/16 [History] Turmeric Root Extract [Turmeric] 500 mg PO DAILY 07/23/16 [History] Ertapenem [INVanz] 1,000 mg IVPB DAILY #9 vial 07/27/16 [Rx] Allergies/Adverse Reactions: Allergies No Known Allergies Allergy (Verified 04/14/16 10:00) Date of admission: 07/23/16 16:57 Primary care physician: Ratna Nazario CNP Consults: 07/25/16 10:03 Consult to Respiratory Therapy [CONS] Urgent Reason for Consult: induced sputum sample Call Completed: No 07/25/16 12:38 Consult to PICC team [Consult to Invasive Line Access Team] [CONS] Routine Reason for Consult: Powerglide insertion Line Type: EPIV Discharging clinician: Curtis Garcia Anticipated date of discharge: 07/27/16 - Patient Status Disposition: Transfer SNF Condition: Fair Functional capacity at discharge: bed bound Overall status at discharge: patient is progressing back to baseline - Discharge Instructions Instructions: Urinary Tract Infection in Women (DC), Diabetes Mellitus Type 2 in Adults (DC), Sepsis (DC), Anemia (GEN), Pneumonia (DC) Follow Up With: Ratna Nazario CNP [Primary Care Provider] - (web request sent on 05/27/17 ) - Diet and Activity Activity: as per physical therapy Diet: advance to your usual diet Hospital course: Ms. Bueno is a 89 year old female, hx TBI in 2013, bedbound with indwelling deal for past 6 months, presents AMS, setting of worsening cough and sick contacts. Poor appetite and lower energy. She was previously in hospice, then her nephew Mauricio ROYAL [phone] changed her to living at home with him + HH. Nephew states her baseline is verbal 1-2 words, but has been less verbal. Patient would present to [facility] with chief concern: poor appetite and change in mental status. Comorbidities would include: arthritis, cancer (CML in remission), coronary artery disease, dementia, diabetes, glaucoma, hypertension, myocardial infarction, osteoporosis, renal disease, thyroid disease. She would be started on empiric antibiotics guided by previous urine culture for complicated UTI due to indwelling deal. Urine culture would disclose proteus mirablis ESBL. Sensitive to ertapenem, zosyn. consult due to her increasing debility. Nephew was agreeable to [facility], sent for approval of IV antibiotics. Patient transitioned to ertapenem and tolerated well. Nephew Mauricio provided contact information for [facility] as he stated he may in the future want to get patient established with hospice again. Patient did become more alert and some vocalizing, progressing to baseline. At time of discharge, patient was clinically improved, hemodynamically stable, progressing to baseline. MPOA agreeable with plan of care. Complete duration of course for complicated UTI. MPOA advised to bring patient for immediate medical attention for any new or worsening symptoms including but not limited to fever, chills, chest pain, chest pressure, dyspnea, cough, abdominal pain, nausea, vomiting, diarrhea, bloody stool, urine. Patient will follow-up with primary care physician: Ratna Nazario. - Time Spent with Patient Total time spent providing and/or coordinating discharge services: Greater than 30 minutes - Constitutional Vitals: Temp Pulse Resp BP Pulse Ox 98.3 F 73 17 142/70 98 07/27/16 06:38 07/27/16 06:38 07/27/16 06:38 07/27/16 06:38 07/27/16 06:38 General appearance: Present: A&O X 0 (frail appearing elderly, contracted lower extremities, some vocalization), no acute distress - Head Head exam: Present: atraumatic, normocephalic - Eye Eye exam: Present: EOMI, sclera anicteric - ENT ENT exam: Present: mucous membranes moist - Neck Neck exam general surgery: Present: trachea midline - Respiratory Respiratory exam: Present: decreased breath sounds (poor inspiratory effort). Absent: rhonchi, wheezes - Cardiovascular Cardiovascular exam: Present: +S1, +S2. Absent: JVD - GI/Abdominal GI/Abdominal exam: Present: soft, no peritoneal signs. Absent: tenderness - Extremities Exam Extremities exam: Present: warm, radial pulses palpable and symetrical - Neurological Exam Neurological exam: Absent: facial droop - VTE Documentation of Mechanical Device: Intermittent pneumatic compression device <Curtis Garcia - Last Filed: 07/27/16 13:35> Date of Encounter: 07/27/16 Date of admission: 07/23/16 16:57 Primary care physician: Ratna Nazario CNP Consults: 07/25/16 10:03 Consult to Respiratory Therapy [CONS] Urgent Reason for Consult: induced sputum sample Call Completed: No 07/25/16 12:38 Consult to PICC team [Consult to Invasive Line Access Team] [CONS] Routine Reason for Consult: Powerglide insertion Line Type: [facility] Hospital course: Ms. Bueno is a 89 year old female - Time Spent with Patient Total time spent providing and/or coordinating discharge services: - Constitutional Vitals: Temp Pulse Resp BP Pulse Ox 98.2 F 61 17 136/71 99 07/27/16 11:11 07/27/16 11:11 07/27/16 11:11 07/27/16 11:11 07/27/16 12:39 - Attending Attestation I examined this patient and my medical decision-making was reviewed with the Resident Physician. I agree with the documented findings, disposition and treatment plan as described except to the extent set forth below. MS back to baseline Awake, nonverbal, heart RRR S1S2 Plan: D/C to SNF w/ iv Ertapenem for ESBL UTI
--- NOTE | 2016-07-27 10:45 | Physician Discharge Referral ---
<Flo Foreman - Last Filed: 07/27/16 13:10> ExtendedCare Referral Info Transfer To: [facility] Provider in Charge: Dr. Garcia Provider in Charge after Transfer: PCP Institutional Level of Care: Skilled - Diagnosis (1) HCAP (healthcare-associated pneumonia) Priority: Primary Status: Resolved (2) UTI (urinary tract infection) due to urinary indwelling Phan catheter Priority: Primary Status: Acute (3) Anemia Priority: Secondary Status: Chronic (4) Dementia Priority: Secondary Status: Chronic (5) DVT prophylaxis Priority: Secondary Status: Acute Prognosis: Fair Aware of Diagnosis: Family Aware of Prognosis: Family - Transfer Medications Prescriptions: Ertapenem [INVanz] 1,000 mg IVPB DAILY #9 vial Home Medications: Aspirin Enteric Coated [Aspirin EC] 81 mg PO DAILY 01/22/16 [History] Levothyroxine [Synthroid] 50 mcg PO QAM 04/13/16 [History] Ipratropium/Albuterol Neb [Duoneb] 3 ml IH Q6HR PRN 04/14/16 [History] Albuterol Sulfate [Albuterol Inhaler] 1 puff IH Q4H PRN 07/23/16 [History] Docusate Sodium [Dok] 100 mg PO DAILY PRN 07/23/16 [History] Donepezil [Aricept] 5 mg PO DAILY 07/23/16 [History] Potassium Chloride 20 mcg PO DAILY 07/23/16 [History] Turmeric Root Extract [Turmeric] 500 mg PO DAILY 07/23/16 [History] Ertapenem [INVanz] 1,000 mg IVPB DAILY #9 vial 07/27/16 [Rx] Allergies/Adverse Reactions: Allergies No Known Allergies Allergy (Verified 04/14/16 10:00) - Respiratory Orders Smoking Cessation: Smoking cessation has been advised. For more information, call the [place] Tobacco Quit Line at 4-983-SARJ-NOW. - Ancillary Orders May use pressure relief devices daily prn - Advance Directives Living Will: No Power of Diving Supervisor: No Code Status: DNR-Arrest/Don't Intubate - Mobility Orders Bedrest - Rehabiliation Orders Rehab Potential: Fair Rehab Orders: Sternal Precautions, ROM Exercises - Treatments Skin tear care topically daily PRN per policy - Diet Orders Pureed CERTIFICATION: I certify that the transfer of the above named patient to an Extended Care Facility is necessary for the continuing treatment of the diagnosis listed. The above information is true and accurate reflection of patient's current condition. Confidential - Redisclosure prohibited without a patient's written consent. <Curtis Garcia - Last Filed: 07/27/16 16:37> - Respiratory Orders Smoking Cessation: Smoking cessation has been advised. For more information, call the [place] Tobacco Quit Line at 8-684-IBKA-NOW. CERTIFICATION: I certify that the transfer of the above named patient to an Extended Care Facility is necessary for the continuing treatment of the diagnosis listed. The above information is true and accurate reflection of patient's current condition. Confidential - Redisclosure prohibited without a patient's written consent. I examined this patient and my medical decision-making was reviewed with the Resident Physician. I agree with the documented findings, disposition and treatment plan as described except to the extent set forth below.
[2016-07-27 11:19] VITALS: BP 136/71
[2016-07-27] MEDS ORDERED: Aminoglycoside Consult 1 EACH MC ONE (13:39)
[2016-07-30 08:27] LABS: MMA (VIT B12 STATUS) 0.22 umol/L (0.00-0.40)
== END 2016-07-27 13:40 | DRG 698 ==
LOC: EMEROO 11:13 → 2ANU 11:13 → SUATTDRO 16:57
PROVIDERS: ADMIT Internal Medicine; ATTEND Internal Medicine

== ENCOUNTER 2016-09-15 22:57 | Inpatient (IN) ==
[2016-09-15] MEDS ORDERED: 0.9 % Sodium Chloride 1,000 ML IVC ONE (23:21)
--- NOTE | 2016-09-15 23:26 | Emergency Department Note ---
Disposition Clinical Impression: Encephalopathy UTI (urinary tract infection) Qualifiers: Urinary tract infection type: site unspecified Hematuria presence: without hematuria Qualified Code(s): N39.0 - Urinary tract infection, site not specified Disposition: Admitted As Inpatient Condition: Serious Time of Disposition: 03:17 Weakness HPI - General Chief complaint: ED General Medical Stated complaint: Possible UTI Time Seen by Provider: 09/15/16 23:10 Source: family, EMS Limitations: altered mental status, other Nursing Notes Reviewed: Yes Vital Signs Reviewed: Yes - History of Present Illness HPI Narrative: 89-year-old female with history of Proteus growing ESBL and previous need for IV ertapenem presents with generalized weakness, patient has a history of UTI altered mental status dementia, her primary caregiver was unable to take care of her tonight a surrogate caregiver did call EMS because she had a worsening mental state. Patient is a DNR CCA per her nephew who is not her power of city attorney and who is at bedside and provides her history. Patient has been generally weak, no focal deficits, denied chest pain but is very limited historian. Unable to get urine at home from caregivers she does live at home Pt Subjective Complaint: generalized weakness/fatigue Onset (ago): day(s) Location: generalized Pain Scale: 0 Improves with: none Worsens with: none Context: new medication - Related Data Home Medications Medication Instructions Recorded Confirmed Aspirin Enteric Coated [Aspirin EC] 81 mg PO DAILY 01/22/16 07/23/16 Levothyroxine [Synthroid] 50 mcg PO QAM 04/13/16 07/23/16 Ipratropium/Albuterol Neb [Duoneb] 3 ml IH Q6HR PRN 04/14/16 07/23/16 Albuterol Sulfate [Albuterol 1 puff IH Q4H PRN 07/23/16 07/23/16 Inhaler] Docusate Sodium [Dok] 100 mg PO DAILY PRN 07/23/16 07/23/16 Donepezil [Aricept] 5 mg PO DAILY 07/23/16 07/23/16 Potassium Chloride 20 mcg PO DAILY 07/23/16 07/23/16 Turmeric Root Extract [Turmeric] 500 mg PO DAILY 07/23/16 07/23/16 Previous Rx's Medication Instructions Recorded Ertapenem [INVanz] 1,000 mg IVPB DAILY #9 vial 07/27/16 Allergies Allergy/AdvReac Type Severity Reaction Status Date / Time No Known Allergies Allergy Verified 04/14/16 10:00 Limitations: ROS unobtainable due to patients medical condition Past Medical History - Past Medical History Attestation: Yes The following information was validated with the patient. Source: unable to obtain, old records reviewed, obtained from family Medical history: Reports: arthritis, cancer, coronary artery disease, dementia, diabetes, glaucoma, hypertension, myocardial infarction, osteoporosis, renal disease, thyroid disease, other Surgical history: Reports: cholecystectomy, knee replacement, other Psychiatric history: Reports: no psych history - Social History Smoking Status: Never smoker Smokeless Tobacco Status: No Alcohol use: Reports: none Drug use: Reports: none Physical Exam Constitutional: Elderly female, unable to assess GCS of 12 [id number] Neck: normal inspection, neck is supple, trachea midline Resp: normal chest inspection, CTA bilaterally, no resp distress CV: RRR, no m/g/r GI: normal inspection, Soft, NTND, BS present Back: normal inspection, no tenderness to palpation Neuro: A&0x0, no gross motor or sensory deficits bilaterally MSK: normal inspection, bilateral UE and LE with normal ROM Psych: normal mood, normal affect Skin: Poor Skin turgor, dry mucous membranes - General Limitations: altered mental status, other General appearance: alert, other Course Course Narrative: Elderly cachectic female appears in mild to moderate distress, will check blood cultures lactate basic lab work reassess urinalysis chest x-ray. - Reevaluation(s) Reevaluation #1: Patient is leukopenic, she did grow urine that was very cloudy, given symptoms and altered mental state we will treat her empirically for UTI with Zosyn which her Proteus would sensitive to previously admitted to the hospitalist Dr. Whitaker , head ct ordered Time: 03:00 Vital Signs Temperature 98.6 F 09/15/16 23:13 Pulse Rate 98 09/15/16 23:13 Respiratory Rate 16 09/15/16 23:13 Blood Pressure 143/88 09/15/16 23:13 O2 Sat by Pulse Oximetry 94 L 09/15/16 23:13 Temperature 98.6 F 09/15/16 23:13 Pulse Rate 79 09/16/16 01:40 Respiratory Rate 14 09/16/16 01:40 Blood Pressure 110/70 09/16/16 01:40 O2 Sat by Pulse Oximetry 100 09/16/16 01:40 Oxygen Delivery Oxygen Delivery Room Air Weakness - Differential Diagnosis Differential Diagnosis: Likely: acute myocardial infarction, anemia, sepsis/ infection, dehydration, metabolic - Medical Records Medical records reviewed: Yes I reviewed the patient's medical records. - Lab Data Lab results reviewed: Yes I reviewed the patient's lab results. Result diagrams: 09/15/16 23:58 09/15/16 23:58 Lab Results 09/15/16 09/15/16 09/15/16 Range/Units 23:58 23:58 23:58 WBC 4.1 L (4.3-11.1) K/mcL RBC 3.71 L (3.82-4.97) M/mcL Hgb 9.9 L (11.5-15.4) g/dL Hct 32.5 L (35.3-44.9) % MCV 87.6 (83.0-100.0) fL MCH 26.7 L (28.0-33.3) pg MCHC 30.5 L (31.6-35.5) g/dL RDW 15.0 H (11.5-14.5) % Plt Count 356 (140-400) K/mcL MPV 8.4 L (9.4-12.4) fL Immature Gran % 0.0 (0-4) % Seg Neutrophils % 46.3 % Lymphocytes % 31.1 % Monocytes % 5.6 % Eosinophils % 15.8 % Basophils % 1.2 % Neutrophils # 1.9 (1.6-8.9) K/mcL Lymphocytes # 1.3 (0.6-4.6) K/mcL Monocytes # 0.2 (0.0-1.3) K/mcL Eosinophils # 0.7 H (0.0-0.6) K/mcL Basophils # 0.1 (0.0-0.2) K/mcL Immature Plt Fraction 0.6 L (1.1-6.1) % Sodium 144 (136-145) mEq/L Potassium 3.3 L (3.5-4.5) mEq/L Chloride 108 (98-109) mEq/L Carbon Dioxide 27 (19-29) mEq/L BUN 13 (7-20) mg/dL Creatinine 0.57 (0.57-1.11) mg/dL Est GFR ( Amer) > 60 (> 60) Est GFR (Non-Af Amer) > 60 (> 60) BUN/Creatinine Ratio 23 (6-26) Glucose 114 H (70-99) mg/dL Calculated Osmolality 299 (280-300) Lactic Acid (0.5-2.2) mmol/L Calcium 9.2 (8.6-10.8) mg/dL Troponin I 0.02 (0-0.03) ng/mL Ur Specimen Adequacy Urine Color (Yellow) Urine Clarity (Clear) Urine pH (5.0-8.0) pH Units Ur Specific [place] (1.010-1.025) Urine Protein (Neg-Trace) mg/dL Urine Glucose (UA) (Normal) mg/dL Urine Ketones (Negative) mg/dL Urine Blood (Negative) Urine Nitrite (Negative) Urine Bilirubin (Negative) Urine Urobilinogen (Normal) mg/dL Ur Leukocyte Esterase (Negative) Urine Microscopic RBC (0-3) per hpf Urine Microscopic WBC (0-3) per hpf Ur Squamous Epith Cells (None-Few) per lpf Urine Bacteria (None-Few) per hpf Ur Culture Indicated? (NO) 09/16/16 09/16/16 Range/Units 00:58 01:37 WBC (4.3-11.1) K/mcL RBC (3.82-4.97) M/mcL Hgb (11.5-15.4) g/dL Hct (35.3-44.9) % MCV (83.0-100.0) fL MCH (28.0-33.3) pg MCHC (31.6-35.5) g/dL RDW (11.5-14.5) % Plt Count (140-400) K/mcL MPV (9.4-12.4) fL Immature Gran % (0-4) % Seg Neutrophils % % Lymphocytes % % Monocytes % % Eosinophils % % Basophils % % Neutrophils # (1.6-8.9) K/mcL Lymphocytes # (0.6-4.6) K/mcL Monocytes # (0.0-1.3) K/mcL Eosinophils # (0.0-0.6) K/mcL Basophils # (0.0-0.2) K/mcL Immature Plt Fraction (1.1-6.1) % Sodium (136-145) mEq/L Potassium (3.5-4.5) mEq/L Chloride (98-109) mEq/L Carbon Dioxide (19-29) mEq/L BUN (7-20) mg/dL Creatinine (0.57-1.11) mg/dL Est GFR ( Amer) (> 60) Est GFR (Non-Af Amer) (> 60) BUN/Creatinine Ratio (6-26) Glucose (70-99) mg/dL Calculated Osmolality (280-300) Lactic Acid 0.7 (0.5-2.2) mmol/L Calcium (8.6-10.8) mg/dL Troponin I (0-0.03) ng/mL Ur Specimen Adequacy See below A Urine Color Yellow (Yellow) Urine Clarity Cloudy A (Clear) Urine pH 6.5 (5.0-8.0) pH Units Ur Specific [place] >= 1.030 H (1.010-1.025) Urine Protein 30 H (Neg-Trace) mg/dL Urine Glucose (UA) Normal (Normal) mg/dL Urine Ketones Negative (Negative) mg/dL Urine Blood Small H (Negative) Urine Nitrite Negative (Negative) Urine Bilirubin Negative (Negative) Urine Urobilinogen Normal (Normal) mg/dL Ur Leukocyte Esterase Trace H (Negative) Urine Microscopic RBC Present (0-3) per hpf Urine Microscopic WBC Present (0-3) per hpf Ur Squamous Epith Cells Many H (None-Few) per lpf Urine Bacteria Present (None-Few) per hpf Ur Culture Indicated? YES A (NO) - Radiology Data Radiology results reviewed: Yes I reviewed the patient's radiology results. Chest X-Ray 09/15/16 23:21 IMPRESSION: Evaluation limited by suboptimal patient positioning. No gross acute abnormalities. Borderline cardiomegaly, unchanged. Emphysema is suspected. D/ / Boni Guillen MD / Boni Guillen MD Interpreting Provider: Boni Guillen MD - EKG Data EKG attestation: Yes I reviewed and interpreted this EKG. EKG shows normal: sinus rhythm (82 bpm CA 185 QRS 82 QTC 413 sinus rhythm low voltage multiple PVCs.) Rhythm: NSR [place]/QRS: normal Interpretation: no acute changes - Core Measures AMI Core Measures Followed: No Measure Exclusions: not indicated Attestation Statement - Attestation Attestation: I, Vaughn Juares MD, personally performed a history and physical exam of the patient and discussed their management with the resident. I reviewed the resident's note and agree with the documented findings, medical decision making , and plan of care. 89-year-old female with history of dementia and is cared for at home by family. Presents here for generalized weakness tonight. Her normal [place] attendant had to leave to be with other family. Apparently some neighbors were watching patient and then another nephew was called and came to see patient. They feel they are really unable to care for this patient. Patient is contractured with dementia and unable to provide any History or review of systems. On examination patient is a 12 cachectic elderly contractured female in no distress. She is alert but unable to follow commands or answer questions. There is no cyanosis or diaphoresis. Breath sounds are decreased but equal bilaterally. Heart regular rate and rhythm. Abdomen is soft with normal bowel sounds. Labs reviewed. No acute abnormality on chest x-ray. The hospitalist, Dr. Whitaker, was consulted and accepted admission of the patient.
[2016-09-16 00:07] LABS: Basophils # 0.1 K/mcL (0.0-0.2); Basophils % 1.2 %; Eosinophils # 0.7 K/mcL (0.0-0.6); Eosinophils % 15.8 %; Hematocrit 32.5 % (35.3-44.9); Hemoglobin 9.9 g/dL (11.5-15.4); Immature Platelets 0.6 % (1.1-6.1); Lymphocytes # 1.3 K/mcL (0.6-4.6); Lymphocytes % 31.1 %; Mean Corpuscular HGB Conc 30.5 g/dL (31.6-35.5); Mean Corpuscular Hemoglobin 26.7 pg (28.0-33.3); Mean Corpuscular Volume 87.6 fL (83.0-100.0); Mean Platelet Volume 8.4 fL (9.4-12.4); Monocytes # 0.2 K/mcL (0.0-1.3); Monocytes % 5.6 %; Neutrophils # 1.9 K/mcL (1.6-8.9); Platelet Count 356 K/mcL (140-400); Red Blood Count 3.71 M/mcL (3.82-4.97); Segmented Neutrophils % 46.3 %
[2016-09-16 00:19] LABS: BUN/Creatinine Ratio 23 (6-26); Blood Urea Nitrogen 13 mg/dL (7-20); Calcium 9.2 mg/dL (8.6-10.8); Carbon Dioxide 27 mEq/L (19-29); Chloride 108 mEq/L (98-109); Glucose 114 mg/dL (70-99); Osmolality,Calculated 299 (280-300); Potassium 3.3 mEq/L (3.5-4.5); Sodium 144 mEq/L (136-145); eGFR For African Americans > 60 (> 60); eGFR For Non-African Americans > 60 (> 60)
[2016-09-16 01:20] LABS: Bilirubin,Urine Negative (Negative); Blood,Urine Small (Negative); Clarity,Urine Cloudy (Clear); Color,Urine Yellow (Yellow); Glucose,Urine (UA) Normal (Normal); Ketones,Urine Negative (Negative); Leukocyte Esterase,Urine Trace (Negative); Nitrite,Urine Negative (Negative); PH,Urine 6.5 pH Units (5.0-8.0); Protein,Urine 30 mg/dL (Neg-Trace); Specific Gravity,Urine >= 1.030 (1.010-1.025); Urobilinogen,Urine Normal (Normal)
[2016-09-16 01:23] LABS: Squamous Epithelial Cell,Urine Many per lpf (None-Few)
[2016-09-16 01:24] LABS: Bacteria,Urine Present per hpf (None-Few); RBC,Urine Present per hpf (0-3); WBC,Urine Present per hpf (0-3)
[2016-09-16] MEDS ORDERED: Piperacillin/Tazobactam 3.375 GM in D5% in Water (Mini-Bag+) 100 ML IVPB ONE (02:31)
--- NOTE | 2016-09-16 04:32 | Internal Med History&Physical ---
Date of Encounter: 09/16/16 Time of Encounter: 04:00 Assessment and Plan (1) Toxic metabolic encephalopathy Current visit: Yes Status: Acute . (2) Delirium due to conditions classified elsewhere Current visit: Yes Status: Acute . (3) Dementia arising in the senium and presenium Current visit: Yes Status: Acute . (4) Acute chronic obstructive pulmonary disease with respiratory failure Current visit: Yes Status: Acute . (5) Acute respiratory failure with hypoxia Current visit: Yes Status: Acute . (6) Bicytopenia Current visit: Yes Status: Acute . (7) Dehydration Current visit: Yes Status: Acute . (8) Anemia Current visit: Yes Status: Chronic . Qualifiers: Anemia type: other cause Other causes of anemia: chronic disease, other Qualified Code(s): D63.8 - Anemia in other chronic diseases classified elsewhere (9) Hyperglycemia Current visit: Yes Status: Chronic . (10) Hypokalemia Current visit: Yes Status: Acute . (11) At risk for accident in home Current visit: Yes Status: Acute . (12) At risk for acid-base imbalance Current visit: Yes Status: Acute . (13) At risk for activity intolerance Current visit: Yes Status: Acute . (14) At risk for acute confusion Current visit: Yes Status: Acute . (15) At risk for adverse drug event Current visit: Yes Status: Acute . (16) UTI (urinary tract infection) Current visit: Yes Status: Acute . Qualifiers: Urinary tract infection type: site unspecified Hematuria presence: without hematuria Qualified Code(s): N39.0 - Urinary tract infection, site not specified (17) Diabetes mellitus Current visit: Yes Status: Chronic . Qualifiers: Diabetes mellitus type: type 2 Diabetes mellitus complication status: with kidney complications Diabetes mellitus complication detail: with chronic kidney disease Diabetes mellitus detention insulin use: without dance master use Chronic kidney disease stage: unspecified stage Qualified Code(s): E11.22 - Type 2 diabetes mellitus with diabetic chronic kidney disease (18) Dysphagia Current visit: Yes Status: Chronic . 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 (20) Chronic indwelling Deal catheter Current visit: Yes Status: Chronic . 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 Internal Medicine - H&P: HPI Chief complaint: Confusion Admitted From: Emergency Dept Plans for Post Hospital Care: Home History of present illness: Ms. Bueno is a 89 year old female with history significant for COPD-emphysema, dementia unspecified, h/oTBI/aphasia/functional paraplegia, h/oTIAs, contractures/bedbound/indwelling deal, remote h/o alcohol abuse, anxiety- depression, cirrhotic liver disease, chr pancreatitis, CAD/AMI, ?diastCHF, type II DM, osteoarthritis, osteoporosis, CKD III, glaucoma, GERD, rec MDR UTIs/chr indwelling Deal catheter, h/o CML (in remission), hypothyroidism, nonsmoker. Patient was visited and interviewed and examined. She was found to be acutely encephalopathic and a non-historian of circumstances and events. She is nonverbal and unable to follow commands or answer questions. Information is collected from family members/caregivers at the bedside and collective medical records. Patient is admitted to [facility] via the emergency department when she presents by EMS services from home in the company of family. Patient possesses a history of Proteus mirabilis growing ESBL urinary tract infection with recent hospitalization. The patient has been receiving treatment in the setting with intravenous Invanz (07/27-08/04). However she has been experiencing increasing lethargy and generalized weakness. She has also had UTI-induced alterations in mental status before and she presents with increasing confusion. Because of her worsening mental status and dementia caregivers have found it difficult to manage her in the home setting. Findings in the ED: Temperature 98.6 pulse 70-98 respiration 14-16 BP 110-143/70 -88 O2 saturation 94-100% room air. WBC 4.1 hemoglobin 9.9 platelets 356,000. MCH 26.7 MCHC 30.5. RDW 15. Differential shows an increase in eosinophils. Metabolic panel notes a sodium of 144 potassium of 3.3. BUN 13 creatinine 0.57. Insulin 14 osmolality 299. Troponin 0.02. Lactic acid 0.7. Urinalysis shows specific gravity greater than 1.03. Large protein. Small blood. Trace leukocyte esterase. RBC and WBC present. Many squamous epithelial cells. Bacteria present. CT of the head demonstrated no abnormalities. Patchy hypodensities in the periventricular and subcortical matter. Nonspecific but may represent chronic small vessel ischemic disease. Advanced age-related cerebral volume loss. Right mastoid effusion. Portable chest x-ray demonstrates no acute active cardiopulmonary process. Medically. Emphysema. Preliminary impression suggests acute on chronic encephalopathy patient with baseline dementia in the setting of persistent complicated UTI (Proteus mirabilis growing ESBL). Initial screening studies are benign. Urinary sediment is suspicious but not diagnostic; assessment is warranted. The patient presents at risk for acute clinical decline and morbidity given the extremes of her comorbid conditions, advanced age and presenting clinical concerns. Workup and treatments will progress comprehensively. Cumulative laboratory and radiographic data base was reviewed, considered and discussed. Pertinent ancillary medical records including ECW and PCI documentation was reviewed and considered. Given the patient's presenting concerns, past medical history, clinical findings and symptoms, she is admitted at this time will undergo further evaluation and disposition. Orders were written as per the computerized physician service order clerk system.......................................................................... .................... Consultative opinions will be sought as clinical circumstances justify. financial services representative/case management consultation requested to assist discharge planning needs and potential placement. Pain management needs will be addressed. Laboratory and radiographic data base will be updated as appropriate. Studies include: Cultures of blood and urine, UA, cardiac injury panel, BNP, PT/INR/APTT , metabolic and hematologic panel, magnesium, phosphorus, ionized calcium, thyroid panel, lipid profile, A1c, C-peptide, CRP, sedimentation rate, blood gas , lactic acid, prolactin, serologies, etc. Precautions: Aspiration, fall, delirium protocol/surveillance initiated. Telemetry with continuous hemodynamic monitoring and pulse oximetry initiated. Orthostatic vital signs. Empiric antibody coverage: Intravenous Zosyn pending culture data. Special studies: CT abd/pelvis, CT head, chest x-ray, telemetry, EKG, US retroperitomeum . Pulmonary toilet: Incentive spirometry, aerosol bronchodilator, mucolytic, antitussive, supplemental oxygen. Corticosteroid therapyPRN. CPAP/BiPAP supplemental oxygen deliveryPRN. Aerosol Mucomyst therapyPRN. Fluid and electrolyte repletion efforts will proceed. Careful attention to fluid balance and renal recovery will be emphasized. Avoidance of nephrotoxic exposure and adverse drug drug interaction in the setting of impaired renal function will be monitored closely. Acute coronary syndrome protocol/surveillance initiated. DVT and PUD prophylaxis initiated: PPI therapy, intermittent pneumatic cuffs. Subcutaneous heparin. Early ambulation will be encouraged. Immunization updates recommended. Influenza and pneumococcal vaccinations as part of ongoing preventative healthcare recommendations strongly recommended. Smoking cessation counseling briefly addressed. Patient is a nonsmoker. Advanced care directive discussion briefly addressed. Patient does not declare any healthcare restrictions at this time. Cardiovascular risk appraisal and cardiovascular risk reduction efforts will be emphasized. Physical and occupational therapy consulted to evaluate patient's functional capacity and progress mobility as her circumstances permit. Sliding scale insulin coverage, ADA/ mechanical dietary restraint and schedule an as-needed basis fingerstick glucose assessments were initiated. Nutrition/ diabetes education counseling may be considered as circumstances justify. Outpatient medication schedules will be reviewed, confirmed and facilitated as appropriate. Reconciliation of home treatments including adjustments, substitutions and reintroduction into the treatment regimen will address necessary maintenance therapies for chronic pre-existing medical conditions. Plan of care has been reviewed and discussed in detail with the patient's caregiver. Questions addressed. Hospital course dictated by clinical findings, treatment response and potential consultative interventions. Patient is at risk for further acute clinical decline and morbidity due to her advanced age, presenting chief complaints and comorbid conditions. Condition is serious. Prognosis is guarded. CODE STATUS is DNR-Comfort Care arrest. Past Med Surg Social Fam HX - Past Medical History Source: old records reviewed Medical history: arthritis, cancer (CML ; in remission.), cirrhosis, coronary artery disease, CVA (TBI 2013.), dementia, diabetes, GERD, glaucoma, hypertension, malignancy, myocardial infarction, osteoporosis, renal disease, thyroid disease, TIA, other (Chronic pancreatitis. h/o alcohol abuse. History of delirium tremens.) Psychiatric history: anxiety, depression, other - Past Surgical History Surgical History: cholecystectomy, knee replacement, other - Social History Smoking Status: Former smoker Smokeless Tobacco Status: No Alcohol use: none (Past history of alcoholism) Drug use: none Occupational status: retired Current living situation: Home, With Family Activity Level: Independent ambulation, Mostly sedentary Recent Out of Country Travel Within the Last 8 Weeks: No Exposure or Possible Exposure to Illness During Travel: No - Family History Father Hx Family Endocrine Disorder: Yes Hx Family Neurologic Disorders: Yes (CVA) Mother Living Status: Unknown Internal Medicine - H&P: Meds Aspirin Enteric Coated [Aspirin EC] 81 mg PO DAILY 01/22/16 [History] Levothyroxine [Synthroid] 50 mcg PO QAM 04/13/16 [History] Ipratropium/Albuterol Neb [Duoneb] 3 ml IH Q6HR PRN 04/14/16 [History] Albuterol Sulfate [Albuterol Inhaler] 1 puff IH Q4H PRN 07/23/16 [History] Docusate Sodium [Dok] 100 mg PO DAILY PRN 07/23/16 [History] Donepezil [Aricept] 5 mg PO DAILY 07/23/16 [History] Potassium Chloride 20 mcg PO DAILY 07/23/16 [History] Turmeric Root Extract [Turmeric] 500 mg PO DAILY 07/23/16 [History] Ertapenem [INVanz] 1,000 mg IVPB DAILY #9 vial 07/27/16 [Rx] Allergies No Known Allergies Allergy (Verified 04/14/16 10:00) ROS unobtainable: due to mental status All Systems PM: A 10-system review of systems was performed and is negative for pertinent findings except as documented above in the HPI. - Constitutional Constitutional: as per HPI - EENT Eyes: as per HPI Ears: as per HPI Nose, mouth and throat: as per HPI - Cardiovascular Cardiovascular ROS IM: as per HPI - Respiratory Respiratory: as per HPI - Gastrointestinal Gastrointestinal: as per HPI - Genitourinary Genitourinary: as per HPI - Musculoskeletal Musculoskeletal ROS IM: as per HPI - Integumentary Integumentary IM: as per HPI - Neurological Neurological ROS: as per HPI - Psychiatric Psychiatric: as per HPI - Endocrine Endocrine IM: as per HPI - Hematologic/Lymphatic Hematologic/Lymphatic: as per HPI - Allergic/Immunologic Allergic/Immunologic: as per HPI - Constitutional Vitals: Temp Pulse Resp BP Pulse Ox 97.7 F 86 16 140/77 98 09/16/16 03:42 09/16/16 03:42 09/16/16 03:42 09/16/16 03:42 09/16/16 03:42 General appearance: Present: cachectic, A&O X 1, underweight. Absent: cooperative, answers questions appropriately - Head Head exam: Present: atraumatic, normocephalic - Eye Eye exam: Present: EOMI, PERRL, conjuntiva pink, sclera anicteric Pupils: Present: normal accommodation, PERRL - ENT ENT exam: Present: mucous membranes dry, normal external ear exam, normal oropharynx - Neck Neck exam general surgery: Present: full ROM, supple, trachea midline. Absent: lymphadenopathy, tenderness, nuchal rigidity - Respiratory Respiratory exam: Present: decreased breath sounds, CTAB. Absent: accessory muscle use, rales, rhonchi, wheezes - Cardiovascular Cardiovascular exam: Present: distant heart sounds, RRR, +S1, +S2. Absent: diastolic murmur, gallop, rubs, systolic murmur - GI/Abdominal GI/Abdominal exam: Present: normal bowel sounds, soft, no peritoneal signs. Absent: distended, tenderness - Extremities Exam Extremities exam: Present: full ROM, warm, radial pulses palpable and symetrical. Absent: calf tenderness, cyanotic, pedal edema - Neurological Exam Neurological exam: Present: alert, altered, CN II-XII intact, no focal deficits. Absent: oriented X3, pronater drift, facial droop, speech deficit - Expanded Neurological Exam Neurological exam expanded: Present: ataxia, expressive aphasia, inattentive, protecting the airway Patient oriented to: Present: person. Absent: place, time Speech: Present: expressive aphasia Sensory exam: upper extremity pin prick: Normal Coma Scale Eye Opening: Spontaneous Coma Scale Motor Response: Localizes to Pain Coma Scale Verbal Response: Incomprehensible Coma Scale Total: 11 - Psychiatric Psychiatric exam: Present: flat affect - Skin Skin exam: Present: dry, intact, warm Internal Med - H&P Results - Labs CBC & Chem 7: 09/18/16 05:11 09/18/16 05:11 Labs: Vital Signs Temp Pulse Resp BP Pulse Ox 09/16/16 03:42 97.7 F 86 16 140/77 98 09/16/16 03:12 16 142/82 09/16/16 01:40 79 14 110/70 100 09/15/16 23:13 98.6 F 98 16 143/88 94 L Intake and Output 09/15/16 09/15/16 09/16/16 15:59 23:59 07:59 Intake Total 1000 / 1000 Balance 1000 / 1000 Intake: IV Fluids 1000 / 1000 0.9 % Sodium Chloride 1, 1000 / 1000 000 ML @ 3750 mls/hr IVC .Q16M ONE Rx#:[id number] Other: # Urine Diapers 1 Weight 49.895 kg 42.638 kg Blood Glucose* 135 Patient Weight 09/16/16 23:59 Weight 42.638 kg Short CBC 09/15/16 Range/Units 23:58 WBC 4.1 L (4.3-11.1) K/mcL Hgb 9.9 L (11.5-15.4) g/dL Hct 32.5 L (35.3-44.9) % Plt Count 356 (140-400) K/mcL Neutrophils # 1.9 (1.6-8.9) K/mcL BMP 09/15/16 Range/Units 23:58 Sodium 144 (136-145) mEq/L Potassium 3.3 L (3.5-4.5) mEq/L Chloride 108 (98-109) mEq/L Carbon Dioxide 27 (19-29) mEq/L BUN 13 (7-20) mg/dL Creatinine 0.57 (0.57-1.11) mg/dL Glucose 114 H (70-99) mg/dL Calcium 9.2 (8.6-10.8) mg/dL Cardiac Enzymes 09/15/16 Range/Units 23:58 Troponin I 0.02 (0-0.03) ng/mL Urine 09/16/16 Range/Units 00:58 Urine Color Yellow (Yellow) Urine Clarity Cloudy A (Clear) Urine pH 6.5 (5.0-8.0) pH Units Ur Specific [place] >= 1.030 H (1.010-1.025) Urine Protein 30 H (Neg-Trace) mg/dL Urine Glucose (UA) Normal (Normal) mg/dL Allergies Allergy/AdvReac Type Severity Reaction Status Date / Time No Known Allergies Allergy Verified 04/14/16 10:00 - Impressions Abnormal lab results WBC 4.1 K/mcL (4.3-11.1) L 09/15/16 23:58 RBC 3.71 M/mcL (3.82-4.97) L 09/15/16 23:58 Hgb 9.9 g/dL (11.5-15.4) L 09/15/16 23:58 Hct 32.5 % (35.3-44.9) L 09/15/16 23:58 MCH 26.7 pg (28.0-33.3) L 09/15/16 23:58 MCHC 30.5 g/dL (31.6-35.5) L 09/15/16 23:58 RDW 15.0 % (11.5-14.5) H 09/15/16 23:58 MPV 8.4 fL (9.4-12.4) L 09/15/16 23:58 Eosinophils # 0.7 K/mcL (0.0-0.6) H 09/15/16 23:58 Immature Plt Fraction 0.6 % (1.1-6.1) L 09/15/16 23:58 Potassium 3.3 mEq/L (3.5-4.5) L 09/15/16 23:58 Glucose 114 mg/dL (70-99) H 09/15/16 23:58 POC Glucose 135 (58-89) H 09/16/16 04:03 Ur Specimen Adequacy See below A 09/16/16 00:58 Urine Clarity Cloudy (Clear) A 09/16/16 00:58 Ur Specific [place] >= 1.030 (1.010-1.025) H 09/16/16 00:58 Urine Protein 30 mg/dL (Neg-Trace) H 09/16/16 00:58 Urine Blood Small (Negative) H 09/16/16 00:58 Ur Leukocyte Esterase Trace (Negative) H 09/16/16 00:58 Ur Squamous Epith Cells Many per lpf (None-Few) H 09/16/16 00:58 Ur Culture Indicated? YES (NO) A 09/16/16 00:58 Laboratory Results WBC 4.1 K/mcL (4.3-11.1) L 09/15/16 23:58 RBC 3.71 M/mcL (3.82-4.97) L 09/15/16 23:58 Hgb 9.9 g/dL (11.5-15.4) L 09/15/16 23:58 Hct 32.5 % (35.3-44.9) L 09/15/16 23:58 MCV 87.6 fL (83.0-100.0) 09/15/16 23:58 MCH 26.7 pg (28.0-33.3) L 09/15/16 23:58 MCHC 30.5 g/dL (31.6-35.5) L 09/15/16 23:58 RDW 15.0 % (11.5-14.5) H 09/15/16 23:58 Plt Count 356 K/mcL (140-400) 09/15/16 23:58 MPV 8.4 fL (9.4-12.4) L 09/15/16 23:58 Immature Gran % 0.0 % (0-4) 09/15/16 23:58 Seg Neutrophils % 46.3 % 09/15/16 23:58 Lymphocytes % 31.1 % 09/15/16 23:58 Monocytes % 5.6 % 09/15/16 23:58 Eosinophils % 15.8 % 09/15/16 23:58 Basophils % 1.2 % 09/15/16 23:58 Neutrophils # 1.9 K/mcL (1.6-8.9) 09/15/16 23:58 Lymphocytes # 1.3 K/mcL (0.6-4.6) 09/15/16 23:58 Monocytes # 0.2 K/mcL (0.0-1.3) 09/15/16 23:58 Eosinophils # 0.7 K/mcL (0.0-0.6) H 09/15/16 23:58 Basophils # 0.1 K/mcL (0.0-0.2) 09/15/16 23:58 Immature Plt Fraction 0.6 % (1.1-6.1) L 09/15/16 23:58 Sodium 144 mEq/L (136-145) 09/15/16 23:58 Potassium 3.3 mEq/L (3.5-4.5) L 09/15/16 23:58 Chloride 108 mEq/L (98-109) 09/15/16 23:58 Carbon Dioxide 27 mEq/L (19-29) 09/15/16 23:58 BUN 13 mg/dL (7-20) 09/15/16 23:58 Creatinine 0.57 mg/dL (0.57-1.11) 09/15/16 23:58 Est GFR ( Amer) > 60 (> 60) 09/15/16 23:58 Est GFR (Non-Af Amer) > 60 (> 60) 09/15/16 23:58 BUN/Creatinine Ratio 23 (6-26) 09/15/16 23:58 Glucose 114 mg/dL (70-99) H 09/15/16 23:58 POC Glucose 135 (58-89) H 09/16/16 04:03 Calculated Osmolality 299 (280-300) 09/15/16 23:58 Lactic Acid 0.7 mmol/L (0.5-2.2) 09/16/16 01:37 Calcium 9.2 mg/dL (8.6-10.8) 09/15/16 23:58 Troponin I 0.02 ng/mL (0-0.03) 09/15/16 23:58 Ur Specimen Adequacy See below A 09/16/16 00:58 Urine Color Yellow (Yellow) 09/16/16 00:58 Urine Clarity Cloudy (Clear) A 09/16/16 00:58 Urine pH 6.5 pH Units (5.0-8.0) 09/16/16 00:58 Ur Specific [place] >= 1.030 (1.010-1.025) H 09/16/16 00:58 Urine Protein 30 mg/dL (Neg-Trace) H 09/16/16 00:58 Urine Glucose (UA) Normal mg/dL (Normal) 09/16/16 00:58 Urine Ketones Negative mg/dL (Negative) 09/16/16 00:58 Urine Blood Small (Negative) H 09/16/16 00:58 Urine Nitrite Negative (Negative) 09/16/16 00:58 Urine Bilirubin Negative (Negative) 09/16/16 00:58 Urine Urobilinogen Normal mg/dL (Normal) 09/16/16 00:58 Ur Leukocyte Esterase Trace (Negative) H 09/16/16 00:58 Urine Microscopic RBC Present per hpf (0-3) 09/16/16 00:58 Urine Microscopic WBC Present per hpf (0-3) 09/16/16 00:58 Ur Squamous Epith Cells Many per lpf (None-Few) H 09/16/16 00:58 Urine Bacteria Present per hpf (None-Few) 09/16/16 00:58 Ur Culture Indicated? YES (NO) A 09/16/16 00:58 Impressions Chest X-Ray 09/15/16 23:21 IMPRESSION: Evaluation limited by suboptimal patient positioning. No gross acute abnormalities. Borderline cardiomegaly, unchanged. Emphysema is suspected. D/ / Boni Guillen MD / Boni Guillen MD Interpreting Provider: Boni Guillen MD Head CT 09/16/16 02:34 IMPRESSION: No acute intracranial abnormality. Patchy hypodensities in the periventricular and subcortical white matter, which are nonspecific, but may represent chronic small vessel ischemic change. Advanced age related cerebral volume loss. Right mastoid effusion. D/ / Boni Guillen MD / Boni Guillen MD Interpreting Provider: Boni Guillen MD
[2016-09-16] MEDS ORDERED: *HR* OxyCODONE Immed Rel 5 MG TABLET PO PRN (04:46)
[2016-09-16] MEDS ORDERED: Acetaminophen 325 MG TABLET PO PRN (04:46)
[2016-09-16] MEDS ORDERED: Naloxone 0.4 MG/ML INJ IVP PRN (04:46)
[2016-09-16] MEDS ORDERED: Ondansetron 4 MG/2 ML VIAL IVP PRN (04:46)
[2016-09-16] MEDS: 0.9 % Sodium Chloride 1,000 ML IVC SCH (06:01)
[2016-09-16] MEDS: *HR* Heparin 5,000 UNIT/ML VIAL SQ SCH ×3 (06:02→23:10)
[2016-09-16] MEDS: Aspirin Enteric Coated 81 MG Tablet PO SCH (08:08)
[2016-09-16] MEDS: Piperacillin/Tazobactam 3.375 GM in D5% in Water (Mini-Bag+) 100 ML IVPB SCH ×3 (08:09→23:10)
[2016-09-16 08:52] LABS: Basophils # 0.1 K/mcL (0.0-0.2); Basophils % 1.1 %; Eosinophils # 0.6 K/mcL (0.0-0.6); Hematocrit 27.6 % (35.3-44.9); Hemoglobin 8.6 g/dL (11.5-15.4); Immature Granulocytes % 0.2 % (0-4); Lymphocytes # 1.5 K/mcL (0.6-4.6); Lymphocytes % 33.6 %; Mean Corpuscular HGB Conc 31.2 g/dL (31.6-35.5); Mean Corpuscular Hemoglobin 27.5 pg (28.0-33.3); Mean Corpuscular Volume 88.2 fL (83.0-100.0); Mean Platelet Volume 10.3 fL (9.4-12.4); Monocytes # 0.2 K/mcL (0.0-1.3); Monocytes % 4.6 %; Neutrophils # 2.1 K/mcL (1.6-8.9); Platelet Count 294 K/mcL (140-400); Red Blood Count 3.13 M/mcL (3.82-4.97); Red Cell Distribution Width 15.3 % (11.5-14.5); Segmented Neutrophils % 47.5 %
[2016-09-16 09:18] LABS: BUN/Creatinine Ratio 21 (6-26); Blood Urea Nitrogen 11 mg/dL (7-20); Calcium 8.6 mg/dL (8.6-10.8); Carbon Dioxide 23 mEq/L (19-29); Chloride 111 mEq/L (98-109); Glucose 108 mg/dL (70-99); Magnesium 1.8 mg/dL (1.6-2.6); Osmolality,Calculated 296 (280-300); Phosphorous 2.7 mg/dL (2.3-4.7); Potassium 3.2 mEq/L (3.5-4.5); Sodium 143 mEq/L (136-145); eGFR For African Americans > 60 (> 60); eGFR For Non-African Americans > 60 (> 60)
[2016-09-16] MEDS: Ipratropium/Albuterol Neb 3 ML IH SCH ×6 (09:48→23:58)
[2016-09-16] MEDS ORDERED: Potassium Chloride 40 MEQ, Lidocaine 1% 2 ML in D5% in Water 500 ML IVPB ONE (14:30)
--- NOTE | 2016-09-16 14:43 | Internal Med Progress Note ---
Date of Encounter: 09/16/16 Time of Encounter: 14:37 - Assessment and plan (1) UTI (urinary tract infection) due to urinary indwelling Deal catheter Current Visit: No Status: Acute Assessment and plan: Will place deal cath As per nephew/primary care transitions nurse, patient has had a difficult time getting a deal placed and they are not able to take care of the patient at home without the deal catheter Will continue IV abx f/u urine cultures Mental status at baseline at this time. Qualifiers: Indwelling urinary catheter type: indwelling urethral catheter Encounter type: subsequent encounter Qualified Code(s): T83.511D - Infection and inflammatory reaction due to indwelling urethral catheter, subsequent encounter ; N39.0 - Urinary tract infection, site not specified (2) Anemia Current Visit: Yes Status: Chronic Assessment and plan: H&H low but acceptable no acute bleeding noted at this time continue to monitor Qualifiers: Anemia type: other cause Other causes of anemia: chronic disease, other Qualified Code(s): D63.8 - Anemia in other chronic diseases classified elsewhere (3) DVT prophylaxis Current Visit: No Status: Acute Assessment and plan: Heparin sQ (4) Dementia Current Visit: No Status: Chronic Assessment and plan: continue home meds Qualifiers: Dementia type: Alzheimer's disease Dementia behavioral disturbance: without behavioral disturbance Qualified Code(s): G30.8 - Other Alzheimer's disease; F02.80 - Dementia in other diseases classified elsewhere without behavioral disturbance (5) Hypothyroidism Current Visit: Yes Status: Acute Assessment and plan: continue Levothyroxine Qualifiers: Hypothyroidism type: unspecified Qualified Code(s): E03.9 - Hypothyroidism , unspecified (6) Goals of care, counseling/discussion Current Visit: Yes Status: Acute Assessment and plan: Palliative care consultation requested to discuss goals of care Patient's primary nursing care attendant/nephew Mr. Mauricio Bueno does not want the patient to be on hospice as he thinks that is just letting her when she has a lot more to live. He does want to keep her at home however is not able to get the adequate help he needs to take care of the patient. - Time Spent With Patient Greater than 35 minutes - Subjective Interval history: Pt is a 89y/o female who is admitted for a change in mental status secondary to UTI. I had a detailed discussion with patient's primary caregiver/nephew(Mauricio Bueno [phone]) who states that the home health nurse was unable to replace the deal catheter as she was trying to replaced the cath and was concerned about a UTI which prompted her visit to the ER. So the sole reason for patient' s arrival to the ER was to change the deal catheter. Patient's primary nursing care attendant recently had a newborne and are in the process of transitioning care to her other son. Mr. Martínez also stated that they already have the info for hospice care and do not want hospice care at this time. - Constitutional Vitals: Temp Pulse Resp BP Pulse Ox 97.4 F L 65 17 138/65 98 09/16/16 11:53 09/16/16 11:53 09/16/16 11:53 09/16/16 11:53 09/16/16 11:53 General appearance: Present: cachectic (contracted), A&O X 0, no acute distress - Head Head exam: Present: atraumatic, normocephalic - Eye Eye exam: Present: conjuntiva pink, sclera anicteric - Respiratory Respiratory exam: Absent: respiratory distress, wheezes - Cardiovascular Cardiovascular exam: Present: RRR, +S1, +S2 - GI/Abdominal GI/Abdominal exam: Present: normal bowel sounds, soft. Absent: tenderness - Extremities Exam Extremities exam: Present: warm, radial pulses palpable and symetrical. Absent : calf tenderness, pedal edema - Neurological Exam Neurological exam: Present: alert, oriented X3 - Psychiatric Psychiatric exam: Present: normal affect, normal mood Internal Medicine: Result - Labs CBC & Chem 7: 09/16/16 06:25 09/16/16 06:25 Labs: Short CBC 09/16/16 Range/Units 06:25 WBC 4.4 (4.3-11.1) K/mcL Hgb 8.6 L (11.5-15.4) g/dL Hct 27.6 L (35.3-44.9) % Plt Count 294 (140-400) K/mcL Neutrophils # 2.1 (1.6-8.9) K/mcL BMP 09/16/16 06:25 Sodium 143 Potassium 3.2 L Chloride 111 H Carbon Dioxide 23 BUN 11 Creatinine 0.52 L Glucose 108 H Calcium 8.6 Consult Discharge Plan - Plan Referrals: Ratna Nazario, VACCINE CUSTOMER REPRESENTATIVE [Primary Care Provider] -
[2016-09-17] MEDS: Ipratropium/Albuterol Neb 3 ML IH SCH ×8 (03:59→22:54)
[2016-09-17] MEDS: 0.9 % Sodium Chloride 1,000 ML IVC SCH ×2 (05:30→23:44)
[2016-09-17 05:31] LABS: Basophils % 0.7 %; Eosinophils # 0.6 K/mcL (0.0-0.6); Eosinophils % 10.5 %; Hematocrit 25.7 % (35.3-44.9); Hemoglobin 7.7 g/dL (11.5-15.4); Immature Granulocytes % 0.3 % (0-4); Lymphocytes % 33.1 %; Mean Corpuscular Hemoglobin 26.5 pg (28.0-33.3); Mean Corpuscular Volume 88.3 fL (83.0-100.0); Monocytes # 0.4 K/mcL (0.0-1.3); Monocytes % 6.6 %; Platelet Count 256 K/mcL (140-400); Red Blood Count 2.91 M/mcL (3.82-4.97); Red Cell Distribution Width 15.4 % (11.5-14.5); Segmented Neutrophils % 48.8 %
[2016-09-17] MEDS: *HR* Heparin 5,000 UNIT/ML VIAL SQ SCH ×2 (05:31→16:20)
[2016-09-17 05:43] LABS: Hemoglobin A1C 5.4 %
[2016-09-17 05:47] LABS: BUN/Creatinine Ratio 22 (6-26); Blood Urea Nitrogen 14 mg/dL (7-20); Calcium 8.3 mg/dL (8.6-10.8); Carbon Dioxide 23 mEq/L (19-29); Chloride 110 mEq/L (98-109); Glucose 135 mg/dL (70-99); Magnesium 1.6 mg/dL (1.6-2.6); Osmolality,Calculated 293 (280-300); Phosphorous 2.4 mg/dL (2.3-4.7); Potassium 3.6 mEq/L (3.5-4.5); Sodium 140 mEq/L (136-145); eGFR For African Americans > 60 (> 60); eGFR For Non-African Americans > 60 (> 60)
--- NOTE | 2016-09-17 07:29 | Electrocardiograph Report ---
[address] [place], [place] [address] Test Date: 2016-09-16 Pat Name: Peyton Bueno Department: 105 Room: 3B Gender: F Financial Management Analyst: : 1925 Requested By: Koffi Hahn Order Number: [id number] Reading MD: Andrew Da Silva MD Measurements Intervals [place] Rate: 82 P: 78 NE: 185 QRS: 26 QRSD: 92 T: 31 QT: 374 QTc: 413 Interpretive Statements SINUS RHYTHM WITH FREQUENT SUPRAVENTRICULAR PREMATURE COMPLEXES. SHORT 4 BEAT RUN OF IRREGULAR SUPRAVENTRICULAR TACHYCARDIA - ATRIAL TACHYCARDIA VERSUS ATRIAL FIBRILLATION LOW QRS VOLTAGE IN EXTREMITY LEADS Electronically Signed On 09-17-2016 7:28:33 EST by Andrew Da Silva MD
--- NOTE | 2016-09-17 09:41 | Palliative - Consult Note ---
Date of Encounter: 09/17/16 Time of Encounter: 09:32 - Assessment and Plan (1) Goals of care, counseling/discussion Current Visit: Yes Status: Acute Assessment and plan: Left message at 1410 with nephew-Toni Bueno to return call. (2) UTI (urinary tract infection) Current Visit: Yes Status: Acute Assessment and plan: on ATB therapy per hospitalist. Qualifiers: Urinary tract infection type: site unspecified Hematuria presence: without hematuria Qualified Code(s): N39.0 - Urinary tract infection, site not specified (3) Dysphagia Current Visit: Yes Status: Chronic Assessment and plan: Mechanically altered diet with thickened liquids. Staff to assist with meals. Qualifiers: Dysphagia type: other dysphagia Qualified Code(s): R13.19 - Other dysphagia Palliative-CN HPI - Data of Consult Patient: known to practice within the last 3 years Consult date: 09/17/16 Requesting Physician: Clarice Foster MD Primary Care Provider: Ratna Nazario CNP - Consult Narrative Palliative Care/Comfort Measures: Palliative care Reason for consult: Goals of care History of present illness: Ms. Bueno is a 89 year old female known to the palliative care team from prior admissions. Ms. Bueno has been bed bound and unable to communicate since a traumatic brain injury in 2013. She is under the care of her nephew-Mauricio Bueno. Ms. Bueno is non-verbal and family is not at bedside, therefore, history was taken from the medical record. Ms. Bueno has a chronic indwelling urinary catheter and has been treated for a multi drug resistant urinary tract infection in the past. She has an altered mental status at baseline due to dementia and a traumatic brain injury. She was admitted to [facility] for further treatment of her recurrent urinary tract infections. The palliative care team was consulted to assist with goals of care. CC: Clarice Foster MD Past Med Surg Social Fam HX - Past Medical History Source: old records reviewed Medical history: arthritis, cancer (CLL), cirrhosis, coronary artery disease, dementia, diabetes, GERD, glaucoma, hypertension, myocardial infarction, osteoporosis, renal disease, thyroid disease, TIA, other (Chronic pancreatitis. 3 alcohol abuse. History of delirium tremens.) Psychiatric history: anxiety, depression - Past Surgical History Surgical History: cholecystectomy, knee replacement, orthopedic, other (left wrist ORIF), other - Social History Smoking Status: Former smoker Smokeless Tobacco Status: No Alcohol use: none (Past history of alcoholism) Drug use: none Current living situation: Home, With Family Activity Level: Bed bound - Family History Father History Unknown: Yes Hx Family Endocrine Disorder: Yes Hx Family Neurologic Disorders: Yes (CVA) Mother History Unknown: Yes Living Status: Unknown Medications and Allergies Aspirin Enteric Coated [Aspirin EC] 81 mg PO DAILY 01/22/16 [History] Levothyroxine [Synthroid] 50 mcg PO QAM 04/13/16 [History] Ipratropium/Albuterol Neb [Duoneb] 3 ml IH Q6HR PRN 04/14/16 [History] Albuterol Sulfate [Albuterol Inhaler] 1 puff IH Q4H PRN 07/23/16 [History] Docusate Sodium [Dok] 100 mg PO DAILY PRN 07/23/16 [History] Donepezil [Aricept] 5 mg PO DAILY 07/23/16 [History] Potassium Chloride 20 mcg PO DAILY 07/23/16 [History] Turmeric Root Extract [Turmeric] 500 mg PO DAILY 07/23/16 [History] Ertapenem [INVanz] 1,000 mg IVPB DAILY #9 vial 07/27/16 [Rx] Allergies No Known Allergies Allergy (Verified 04/14/16 10:00) ROS unobtainable: due to mental status Palliative Care-Exam - Constitutional Vitals: Temp Pulse Resp BP Pulse Ox 97.9 F 60 20 108/44 97 09/17/16 08:10 09/17/16 08:10 09/17/16 08:10 09/17/16 08:10 09/17/16 08:10 General appearance: Present: no acute distress, thin Exam: 89 year old female, non-verbal, unable to follow commmands. - Head Head Exam: Present: atraumatic - Eye Eye exam: Present: EOMI - ENT ENT exam: Present: mucous membranes moist - Respiratory Respiratory exam: Present: decreased breath sounds Additional comments: moist non-productive cough - Cardiovascular Cardiovascular exam: Present: irregular rhythm - GI/Abdominal Exam GI/Abdominal exam: Present: normal bowel sounds, soft. Absent: guarding, tenderness - Rectal Rectal exam: Present: deferred - Catheter Type: Urethral (Phan) - Extremities Exam Additional comments: extremities contracted - Neurological Exam Additional comments: awake, tracks with eyes, non-verbal, unable to follow commands. - Psychiatric Psychiatric exam: Absent: agitated, anxious - Skin Skin exam: Present: dry, warm Internal Medicine - CN: Reslt - Labs CBC & Chem 7: 09/18/16 05:11 09/18/16 05:11 Labs: Short CBC 09/17/16 Range/Units 05:01 WBC 6.1 (4.3-11.1) K/mcL Hgb 7.7 L (11.5-15.4) g/dL Hct 25.7 L (35.3-44.9) % Plt Count 256 (140-400) K/mcL Neutrophils # 3.0 (1.6-8.9) K/mcL BMP 09/17/16 05:01 Sodium 140 Potassium 3.6 Chloride 110 H Carbon Dioxide 23 BUN 14 Creatinine 0.64 Glucose 135 H Calcium 8.3 L Consult Discharge Plan - Plan Referrals: Ratna Nazario CURRICULUM SUPERVISOR [Primary Care Provider] - 09/24/16 1:00 pm Palliative Quality Palliative Quality: Screen for Code Status: NA (Ms. Bueno has an AMS and no family at bedside), Screen for Goals of Care: NA, Screen for Pain: NA, If Pain Regimen Started, Initiate Bowel Regimen: NA, Screen for Nausea/Vomitting: NA Code Status: 09/16/16 04:46 Resuscitation Status: Active [RES] Routine Comment: Resuscitation Status: DNR-Comfort Care-Arrest
[2016-09-17] MEDS: Piperacillin/Tazobactam 3.375 GM in D5% in Water (Mini-Bag+) 100 ML IVPB SCH ×3 (10:19→23:43)
[2016-09-17] MEDS: Aspirin Enteric Coated 81 MG Tablet PO SCH (10:20)
--- NOTE | 2016-09-17 16:30 | Internal Med Progress Note ---
Date of Encounter: 09/17/16 Time of Encounter: 15:50 - Assessment and plan (1) UTI (urinary tract infection) due to urinary indwelling Phan catheter Current Visit: No Status: Acute Assessment and plan: Phan cath placed Will continue IV abx f/u urine cultures, prior culture was a contaminant, will repeat cultures Mental status at baseline at this time. Qualifiers: Indwelling urinary catheter type: indwelling urethral catheter Encounter type: subsequent encounter Qualified Code(s): T83.511D - Infection and inflammatory reaction due to indwelling urethral catheter, subsequent encounter ; N39.0 - Urinary tract infection, site not specified (2) Anemia Current Visit: Yes Status: Chronic Assessment and plan: H&H low but acceptable no acute bleeding noted at this time continue to monitor Qualifiers: Anemia type: other cause Other causes of anemia: chronic disease, other Qualified Code(s): D63.8 - Anemia in other chronic diseases classified elsewhere (3) DVT prophylaxis Current Visit: No Status: Acute Assessment and plan: IPCD (4) Dementia Current Visit: No Status: Chronic Assessment and plan: continue home meds Qualifiers: Dementia type: Alzheimer's disease Dementia behavioral disturbance: without behavioral disturbance Qualified Code(s): G30.9 - Alzheimer's disease , unspecified; F02.80 - Dementia in other diseases classified elsewhere without behavioral disturbance (5) Hypothyroidism Current Visit: Yes Status: Acute Assessment and plan: continue Levothyroxine Qualifiers: Hypothyroidism type: unspecified Qualified Code(s): E03.9 - Hypothyroidism , unspecified (6) Goals of care, counseling/discussion Current Visit: Yes Status: Acute Assessment and plan: Palliative care consultation appreciated Patient's primary career technology teacher/nephew Mr. Mauricio Bueno does not want the patient to be on hospice as he thinks that is just letting her when she has a lot more to live. He does want to keep her at home however is not able to get the adequate help he needs to take care of the patient. Awaiting family input on goals of care - Subjective Interval history: Pt is a 89y/o female who is admitted for a change in mental status secondary to UTI. Pt seen and examined at bedside. REsting in bed, no overnight changes reported. - Constitutional Vitals: Temp Pulse Resp BP Pulse Ox 97.9 F 83 16 107/48 95 09/17/16 11:57 09/17/16 11:57 09/17/16 11:57 09/17/16 11:57 09/17/16 11:57 General appearance: Present: cachectic (contracted), A&O X 0, no acute distress - Head Head exam: Present: atraumatic, normocephalic - Eye Eye exam: Present: normal appearance, conjuntiva pink, sclera anicteric - Respiratory Respiratory exam: Absent: respiratory distress, wheezes - Cardiovascular Cardiovascular exam: Present: RRR, +S1, +S2 - GI/Abdominal GI/Abdominal exam: Present: normal bowel sounds (G-tube in place), soft. Absent : tenderness - Extremities Exam Extremities exam: Present: warm, radial pulses palpable and symetrical ( contracted upper and lower extremities ). Absent: pedal edema Internal Medicine: Result - Labs CBC & Chem 7: 09/17/16 05:01 09/17/16 05:01 Labs: Short CBC 09/17/16 Range/Units 05:01 WBC 6.1 (4.3-11.1) K/mcL Hgb 7.7 L (11.5-15.4) g/dL Hct 25.7 L (35.3-44.9) % Plt Count 256 (140-400) K/mcL Neutrophils # 3.0 (1.6-8.9) K/mcL BMP 09/17/16 05:01 Sodium 140 Potassium 3.6 Chloride 110 H Carbon Dioxide 23 BUN 14 Creatinine 0.64 Glucose 135 H Calcium 8.3 L Consult Discharge Plan - Plan Referrals: Ratna Nazario CNP [Primary Care Provider] - 09/24/16 1:00 pm
[2016-09-18] MEDS: Ipratropium/Albuterol Neb 3 ML IH SCH ×5 (03:52→21:55)
[2016-09-18 06:51] LABS: Basophils % 0.4 %; Eosinophils # 0.8 K/mcL (0.0-0.6); Eosinophils % 16.3 %; Hematocrit 24.8 % (35.3-44.9); Hemoglobin 7.7 g/dL (11.5-15.4); Immature Granulocytes % 0.2 % (0-4); Lymphocytes # 1.6 K/mcL (0.6-4.6); Lymphocytes % 32.3 %; Mean Corpuscular Hemoglobin 27.2 pg (28.0-33.3); Mean Corpuscular Volume 87.6 fL (83.0-100.0); Mean Platelet Volume 9.5 fL (9.4-12.4); Monocytes # 0.4 K/mcL (0.0-1.3); Monocytes % 7.8 %; Neutrophils # 2.1 K/mcL (1.6-8.9); Platelet Count 247 K/mcL (140-400); Red Blood Count 2.83 M/mcL (3.82-4.97); Red Cell Distribution Width 15.6 % (11.5-14.5)
[2016-09-18 07:04] LABS: BUN/Creatinine Ratio 22 (6-26); Blood Urea Nitrogen 13 mg/dL (7-20); Carbon Dioxide 24 mEq/L (19-29); Chloride 112 mEq/L (98-109); Glucose 124 mg/dL (70-99); Magnesium 1.5 mg/dL (1.6-2.6); Osmolality,Calculated 296 (280-300); Phosphorous 2.5 mg/dL (2.3-4.7); Potassium 3.3 mEq/L (3.5-4.5); Sodium 142 mEq/L (136-145); eGFR For African Americans > 60 (> 60); eGFR For Non-African Americans > 60 (> 60)
[2016-09-18] MEDS ORDERED: Magnesium Sulfate 1 GM in D5% in Water 100 ML IVPB ONE (08:16)
[2016-09-18] MEDS ORDERED: Potassium Chloride 20 MEQ, Lidocaine 1% 2 ML in D5% in Water 250 ML IVPB ONE (08:16)
[2016-09-18] MEDS: Piperacillin/Tazobactam 3.375 GM in D5% in Water (Mini-Bag+) 100 ML IVPB SCH ×3 (09:37→23:34)
[2016-09-18] MEDS: Aspirin Enteric Coated 81 MG Tablet PO SCH (09:38)
[2016-09-18] MEDS: *HR* Morphine 2 MG/ML SYRINGE IVP PRN ×3 (10:07→18:23)
--- NOTE | 2016-09-18 12:52 | Event Note ---
Date of Encounter: 09/18/16 Time of Encounter: 12:47 Ms. Bueno appears to be at her baseline. She continues to be non-verbal and unable to follow commands. This is consistent with the description her caregivers provide. resident services manager following for discharge needs. Plan for placement at [facility]. Discussed hospice services with the main caregiver/GIOVANNY- Mauricio Bueno. Mr. Mauricio Bueno plans to investigate hospice services once Ms. Peyton Bueno is ready to return home. During her last admission, the caregivers were provided with pamphlets from the various hospice agencies. Code status established. The palliative care team is not managing any further symptoms. Will sign off at this time. Please contact us as needed.
--- NOTE | 2016-09-18 15:34 | Internal Med Progress Note ---
Date of Encounter: 09/18/16 Time of Encounter: 15:32 - Assessment and plan (1) UTI (urinary tract infection) due to urinary indwelling Phan catheter Current Visit: No Status: Acute Assessment and plan: Phan cath placed Will continue IV abx f/u urine cultures, prior culture was a contaminant, awaiting repeat cultures Mental status at baseline at this time. Likely d/c to rehab once cultures are available Qualifiers: Indwelling urinary catheter type: indwelling urethral catheter Encounter type: subsequent encounter Qualified Code(s): T83.511D - Infection and inflammatory reaction due to indwelling urethral catheter, subsequent encounter ; N39.0 - Urinary tract infection, site not specified (2) Anemia Current Visit: Yes Status: Chronic Assessment and plan: H&H low but acceptable no acute bleeding noted at this time continue to monitor Qualifiers: Anemia type: other cause Other causes of anemia: chronic disease, other Qualified Code(s): D63.8 - Anemia in other chronic diseases classified elsewhere (3) DVT prophylaxis Current Visit: No Status: Acute Assessment and plan: IPCD (4) Dementia Current Visit: No Status: Chronic Assessment and plan: continue home meds Qualifiers: Dementia type: Alzheimer's disease Alzheimer's disease onset: unspecified onset Dementia behavioral disturbance: without behavioral disturbance Qualified Code(s): G30.9 - Alzheimer's disease, unspecified; F02.80 - Dementia in other diseases classified elsewhere without behavioral disturbance (5) Hypothyroidism Current Visit: Yes Status: Acute Assessment and plan: continue Levothyroxine Qualifiers: Hypothyroidism type: unspecified Qualified Code(s): E03.9 - Hypothyroidism , unspecified (6) Goals of care, counseling/discussion Current Visit: Yes Status: Acute Assessment and plan: Palliative care consultation appreciated As per POA ECF placement will be arranged rice field worker eval requested for placement. (7) Electrolyte abnormality Current Visit: Yes Status: Acute Assessment and plan: Hypokalemia and Hypomagnesemia K and Mg supplemented will continue to monitor electrolytes and replace as needed - Subjective Interval history: Pt is a 89y/o female who is admitted for a change in mental status secondary to UTI. Pt seen and examined at bedside. Resting in bed, no overnight changes reported. Family wishes ECF placement. student services rep consulted for placement. Awaiting urine cultures, likely d/c in am. - Constitutional Vitals: Temp Pulse Resp BP Pulse Ox 98.7 F 95 15 128/65 96 09/18/16 14:53 09/18/16 14:53 09/18/16 14:53 09/18/16 14:53 09/18/16 14:53 General appearance: Present: cachectic (contracted), A&O X 0, no acute distress - Head Head exam: Present: atraumatic, normocephalic - Respiratory Respiratory exam: Absent: respiratory distress, wheezes - Cardiovascular Cardiovascular exam: Present: RRR, +S1, +S2 - GI/Abdominal GI/Abdominal exam: Present: normal bowel sounds, soft. Absent: tenderness Additional comments: G tube in place - Extremities Exam Extremities exam: Present: warm, radial pulses palpable and symetrical ( contracted upper and lower extremities). Absent: pedal edema Internal Medicine: Result - Labs CBC & Chem 7: 09/18/16 05:11 09/18/16 05:11 Labs: Short CBC 09/18/16 Range/Units 05:11 WBC 5.0 (4.3-11.1) K/mcL Hgb 7.7 L (11.5-15.4) g/dL Hct 24.8 L (35.3-44.9) % Plt Count 247 (140-400) K/mcL Neutrophils # 2.1 (1.6-8.9) K/mcL BMP 09/18/16 05:11 Sodium 142 Potassium 3.3 L Chloride 112 H Carbon Dioxide 24 BUN 13 Creatinine 0.60 Glucose 124 H Calcium 8.0 L Consult Discharge Plan - Plan Referrals: Ratna Nazario CNP [Primary Care Provider] - 09/24/16 1:00 pm
[2016-09-18] MEDS: 0.9 % Sodium Chloride 1,000 ML IVC SCH (23:34)
[2016-09-19] MEDS: Ipratropium/Albuterol Neb 3 ML IH SCH ×3 (03:35→16:39)
[2016-09-19] MEDS: Piperacillin/Tazobactam 3.375 GM in D5% in Water (Mini-Bag+) 100 ML IVPB SCH (10:43)
[2016-09-19] MEDS: Aspirin Enteric Coated 81 MG Tablet PO SCH (10:45)
[2016-09-19] MEDS: *HR* Morphine 2 MG/ML SYRINGE IVP PRN (10:46)
[2016-09-19 11:49] VITALS: BP 119/64
--- NOTE | 2016-09-19 14:19 | Discharge Summary ---
Date of Encounter: 09/19/16 Time of Encounter: 14:16 - Discharge Diagnosis (1) UTI (urinary tract infection) due to urinary indwelling Deal catheter Priority: Primary Status: Acute Qualifiers: Indwelling urinary catheter type: indwelling urethral catheter Encounter type: subsequent encounter Qualified Code(s): T83.511D - Infection and inflammatory reaction due to indwelling urethral catheter, subsequent encounter ; N39.0 - Urinary tract infection, site not specified (2) Anemia Priority: Secondary Status: Chronic Qualifiers: Anemia type: other cause Other causes of anemia: chronic disease, other Qualified Code(s): D63.8 - Anemia in other chronic diseases classified elsewhere (3) DVT prophylaxis Priority: Secondary Status: Acute (4) Dementia Priority: Secondary Status: Chronic Qualifiers: Dementia type: Alzheimer's disease Alzheimer's disease onset: unspecified onset Dementia behavioral disturbance: without behavioral disturbance Qualified Code(s): G30.9 - Alzheimer's disease, unspecified; F02.80 - Dementia in other diseases classified elsewhere without behavioral disturbance (5) Hypothyroidism Priority: Secondary Status: Chronic Qualifiers: Hypothyroidism type: unspecified Qualified Code(s): E03.9 - Hypothyroidism , unspecified (6) Goals of care, counseling/discussion Priority: Secondary Status: Acute (7) Electrolyte abnormality Priority: Secondary Status: Acute - Discharge Medications Home Medications: Aspirin Enteric Coated [Aspirin EC] 81 mg PO DAILY 01/22/16 [History] Levothyroxine [Synthroid] 50 mcg PO QAM 04/13/16 [History] Ipratropium/Albuterol Neb [Duoneb] 3 ml IH Q6HR PRN 04/14/16 [History] Albuterol Sulfate [Albuterol Inhaler] 1 puff IH Q4H PRN 07/23/16 [History] Docusate Sodium [Dok] 100 mg PO DAILY PRN 07/23/16 [History] Donepezil [Aricept] 5 mg PO DAILY 07/23/16 [History] Potassium Chloride 20 mcg PO DAILY 07/23/16 [History] Turmeric Root Extract [Turmeric] 500 mg PO DAILY 07/23/16 [History] Ertapenem [INVanz] 1,000 mg IVPB DAILY #9 vial 07/27/16 [Rx] Allergies/Adverse Reactions: Allergies No Known Allergies Allergy (Verified 04/14/16 10:00) Date of admission: 09/16/16 02:49 Primary care physician: Ratna Nazario CNP Consults: 09/16/16 14:29 Consult to Local Bulk Driver [CONS] Routine Reason for SW Consult: discharge planning for placement 09/16/16 14:56 Consult to Palliative Care [CONS] Routine Comment: Consulting Provider: Palliative Care Nohelia Discharging clinician: Clarice Foster Anticipated date of discharge: 09/19/16 - Patient Status Disposition: Transfer SNF Condition: Fair Functional capacity at discharge: bed bound Overall status at discharge: patient is back to baseline - Discharge Instructions Follow Up With: Ratna Nazario CNP [Primary Care Provider] - 09/24/16 1:00 pm Additional Instructions: Please follow up with your primary care physician within one week after your discharge from the hospital. Please resume all home medications as prescribed by your primary care physician. Your deal catheter was placed on 09/16/16, please follow up with your PCP in regards to the frequency of the deal cath replacement. - Diet and Activity Activity: as per physical therapy Diet: other (tube feedings) Hospital course: Ms. Bueno is a 89 year old female with history significant for COPD-emphysema, dementia unspecified, h/oTBI/aphasia/functional paraplegia, h/oTIAs, contractures/bedbound/indwelling deal, remote h/o alcohol abuse, anxiety- depression, cirrhotic liver disease, chr pancreatitis, CAD/AMI, ?diastCHF, type II DM, osteoarthritis, osteoporosis, CKD III, glaucoma, GERD, rec MDR UTIs/chr indwelling Deal catheter, h/o CML (in remission), hypothyroidism, nonsmoker was admitted for a concern for UTI and deal cath placement. Patient was empirically started on IV abx and given negative urine culture, therapy will be discontinued. A deal cath was placed. Palliative care consultation was requested and as per patient's POA, patient will be discharged to ECF. Patient' s mental status remained at baseline. Her electrolyte abnormalities were corrected. At this time patient is hemodynamically stable and will be discharged to ECF with follow up with her PCP. - Time Spent with Patient Total time spent providing and/or coordinating discharge services: Less than 30 minutes - Constitutional Vitals: Temp Pulse Resp BP Pulse Ox 99.1 F 90 16 119/64 94 L 03/08/17 11:43 09/19/16 11:43 09/19/16 11:43 09/19/16 11:43 09/19/16 11:43 General appearance: Present: cachectic, A&O X 0, no acute distress, underweight. Absent: cooperative - Head Head exam: Present: atraumatic, normocephalic - Respiratory Respiratory exam: Absent: respiratory distress, wheezes - Cardiovascular Cardiovascular exam: Present: RRR, +S1, +S2 - GI/Abdominal GI/Abdominal exam: Present: normal bowel sounds, soft. Absent: distended, tenderness (Gtube in place) - Extremities Exam Extremities exam: Present: warm, radial pulses palpable and symetrical ( contracted upper and lower extremities). Absent: calf tenderness, pedal edema
--- NOTE | 2016-09-19 14:27 | Physician Discharge Referral ---
ExtendedCare Referral Info Transfer To: [facility] Provider in Charge after Transfer: PCP - Diagnosis (1) UTI (urinary tract infection) due to urinary indwelling Deal catheter Priority: Primary Status: Acute (2) Anemia Priority: Secondary Status: Chronic (3) DVT prophylaxis Priority: Secondary Status: Acute (4) Dementia Priority: Secondary Status: Chronic (5) Hypothyroidism Priority: Secondary Status: Chronic (6) Goals of care, counseling/discussion Priority: Secondary Status: Acute (7) Electrolyte abnormality Priority: Secondary Status: Acute - Transfer Medications Home Medications: Aspirin Enteric Coated [Aspirin EC] 81 mg PO DAILY 01/22/16 [History] Levothyroxine [Synthroid] 50 mcg PO QAM 04/13/16 [History] Ipratropium/Albuterol Neb [Duoneb] 3 ml IH Q6HR PRN 04/14/16 [History] Albuterol Sulfate [Albuterol Inhaler] 1 puff IH Q4H PRN 07/23/16 [History] Docusate Sodium [Dok] 100 mg PO DAILY PRN 07/23/16 [History] Donepezil [Aricept] 5 mg PO DAILY 07/23/16 [History] Potassium Chloride 20 mcg PO DAILY 07/23/16 [History] Turmeric Root Extract [Turmeric] 500 mg PO DAILY 07/23/16 [History] Ertapenem [INVanz] 1,000 mg IVPB DAILY #9 vial 07/27/16 [Rx] Allergies/Adverse Reactions: Allergies No Known Allergies Allergy (Verified 04/14/16 10:00) - Respiratory Orders Smoking Cessation: Smoking cessation has been advised. For more information, call the [place] Tobacco Quit Line at 7-454-RFQN-NOW. - Treatments List/Other: - Discharge Instructions Follow Up With: Ratna Nazario CNP [Primary Care Provider] - 09/24/16 1:00 pm Additional Instructions: Please follow up with your primary care physician within one week after your discharge from the hospital. Please resume all home medications as prescribed by your primary care physician. Your deal catheter was placed on 09/16/16, please follow up with your PCP in regards to the frequency of the deal cath replacement. CERTIFICATION: I certify that the transfer of the above named patient to an Extended Care Facility is necessary for the continuing treatment of the diagnosis listed. The above information is true and accurate reflection of patient's current condition. Confidential - Redisclosure prohibited without a patient's written consent.
== END 2016-09-19 17:14 | disposition short-term general hospital (02) | DRG 698 ==
LOC: 3BNU 22:57 → EMEROO 22:57 → SUATTDRO 09-16 02:49 → 3BNU 09-16 03:12
PROVIDERS: ADMIT Internal Medicine; ATTEND Internal Medicine